=== PATIENT | male | born 1965 | race American Indian/Alaskan Native ===

== ENCOUNTER 2017-03-27 20:31 | Emergency (ER) | payer BC, OTHER ==
--- NOTE | 2017-03-27 20:43 | EDM.PDOC ---
ED HPI GENERAL MEDICAL PROBLEM - General Chief Complaint: Lower Extremity Injury/Pain Stated Complaint: POSSIBLE FRACTURED ANKLE [id number] Time Seen by Provider: 03/27/17 20:42 Source of Information: Reports: Patient History Limitations: Reports: No Limitations - History of Present Illness INITIAL COMMENTS - FREE TEXT/NARRATIVE: twisted this AM, still hurts Right Ankle Pain Score (Numeric/FACES): 4 - Related Data Allergies Allergy/AdvReac Type Severity Reaction Status Date / Time No Known Allergies Allergy Verified 03/27/17 20:47 Home Meds: Home Meds . [No Known Home Meds] 12/25/14 [History] Past Medical History - Past Surgical History GI Surgical History: Reports: Appendectomy, Cholecystectomy Social & Family History - Tobacco Use Smoking Status *Q: Never Smoker Second Hand Smoke Exposure: No - Alcohol Use Days Per Week of Alcohol Use: 0 - Recreational Drug Use Recreational Drug Use: No Review of Systems - Review of Systems Review Of Systems: ROS reveals no pertinent complaints other than HPI. Trauma Exam - Physical Exam Exam: See Below Exam Limited By: No Limitations General Appearance: Reports: Alert, WD/WN, Mild Distress, Other (pain) Head: Reports: Atraumatic Ears: Reports: Hearing Grossly Normal Throat/Mouth: Reports: Normal Voice, No Airway Compromise Neck: Reports: Non-Tender, Full Range of Motion Respiratory Exam: Reports: No Respiratory Distress Cardiovascular: Reports: Regular Rate, Rhythm GI/Abdominal: Reports: Soft, Non-Tender Extremities: Pain with Movement, Tenderness, Other (gait limited to pain, NV wnl , swollen) Neurologic: Reports: No Motor/Sensory Deficits, Alert, Normal Mood/Affect, Oriented x 3 Skin: Reports: Normal Color, Warm/Dry Course - Vital Signs Last Recorded V/S: Last Vital Signs Temp 36.3 C 03/27/17 20:40 Pulse 99 03/27/17 20:40 Resp 15 03/27/17 20:40 BP 138/75 03/27/17 20:40 Pulse Ox 97 03/27/17 20:40 - Orders/Labs/Meds Orders: Active Orders 24 hr Category Date Time Status Ankle Min 3V Rt [CR] Urgent Exams 03/27/17 20:39 Taken Meds: Medications Discontinued Medications Generic Name Dose Route Start Last Admin Trade Name Freq PRN Reason Stop Dose Admin Hydrocodone Bitart/Acetaminophen 1 tab 03/27/17 21:00 [place] 325-10 Mg PO 03/27/17 21:01 ONETIME ONE - Re-Assessments/Exams Free Text/Narrative Re-Assessment/Exam: 03/27/17 21:02 negative x-ray discussed with Pt. Departure - Departure Time of Disposition: 21:02 Disposition: Home, Self-Care 01 Condition: good Clinical Impression: Ankle sprain Qualifiers: Encounter type: initial encounter Involved ligament of ankle: other ligament Laterality: right Qualified Code(s): S93.491A - Sprain of other ligament of right ankle, initial encounter - Discharge Information Instructions: Ankle Sprain, [id number] Forms: ED Department Discharge Additional Instructions: 1) elevate leg as much as possible next 48 hours 2) ice intermittently for swelling 3) wear EMMY and use crutches next 4 days 4) follow up at clinic or recheck as needed rx given: vicodin 5/325mg bid prn x 12 - My Orders Last 24 Hours: My Active Orders 03/27/17 20:39 Ankle Min 3V Rt [CR] Urgent - Assessment/Plan Last 24 Hours: My Active Orders 03/27/17 20:39 Ankle Min 3V Rt [CR] Urgent
[2017-03-27 20:47] VITALS: BP 138/75
[2017-03-27] MEDS ORDERED: Acetaminophen/HYDROcodone 325-10 MG Tab PO ONE (21:00)
== END 2017-03-27 21:26 | disposition home or self-care (01) ==
LOC: DL.ED 20:31
DX: S93.491A Sprain of other ligament of right ankle, initial encounter (principal); Z90.49 Acquired absence of other specified parts of digestive tract; X50.1XXA Overexertion from prolonged static or awkward postures, initial encounter
CPT/HCPCS: 73610; 99283; A9270

== ENCOUNTER 2017-08-25 18:31 | Emergency (ER) | payer BC, OTHER ==
[2017-08-25 19:00] VITALS: BP 138/67
[2017-08-25] MEDS ORDERED: Ibuprofen 800 MG Tab PO ONE (20:37)
--- NOTE | 2017-08-26 03:39 | ER ---
SUBJECTIVE: The patient is a 52-year-old male who is morbidly obese. He states he used to get injections into his knee with cortisone, into both knees. He has had knee pains and aches chronically for a long time. He has not been to clinic for recheck. He has not had any trauma or falls on his knees. He has not taken anything for pain for his knees. He has not had any fevers. He has no redness or warmth or real big changes in his knees, and has become more chronic. He states they felt a little worse over the last 2 weeks. PAST MEDICAL HISTORY: Bilateral knee pain with previous steroid injections into his knees per the patient's report; morbid obesity; previous concussion; migraines; seizure; depression; lumbar sprain with a cracked vertebral body per his report; chronic back pain; appendectomy; cholecystectomy; left eye surgery; and impaired vision. CURRENT MEDICATIONS: Denied. ALLERGIES: Include penicillins, he gets a rash. SOCIAL HISTORY: No tobacco. No alcohol. No drugs. He does drink coffee and soda. REVIEW OF SYSTEMS: Chronic knee pain, seemingly somewhat worse over the last 2 weeks. No fevers or chills. No falls or trauma. No bowel or bladder changes. No bleeding. Please see HPI. OBJECTIVE: Vital Signs: He is afebrile. Heart rate 67, blood pressure is 138/67, respiratory rate 16, and oxygen is 98% on room air. His weight is 144.3 kg. General: Pleasant, talkative, no distress. He is lying down on the gurney. He gets up and can walk around. No respiratory distress. A and O x3. He appears atraumatic. EXTREMITIES: Focused examination of the lower extremities shows them to be obese. He has some dryness of his anterior knees. There is no warmth, no redness, or no signs of trauma. They possibly could have swelling versus just the obesity. There is no crepitus. No calf tenderness. No compartment syndrome. There is no laxity. IMAGING: He was sent for an x-ray. He does have arthritis, especially in the bilateral medial compartment. No signs of fracture or acute processes. EMERGENCY ROOM COURSE: He was given 800 mg of Motrin. ASSESSMENT: 1. Bilateral knee pain, exacerbation of a chronic condition. 2. Morbid obesity, in patient who has previously received cortisone injections into bilateral knees. PLAN: Recommend Tylenol and ibuprofen over the counter. Recommend to see PCP in clinic for this chronic issue as he will need to see his PCP to get a referral to Orthopedics should his PCP find this appropriate. Weight loss would be helpful. Keep active. [facility] /[id number]
== END 2017-08-25 20:44 | disposition home or self-care (01) ==
LOC: DL.ED 18:31
DX: M25.561 Pain in right knee (principal); M25.562 Pain in left knee; E66.01 Morbid (severe) obesity due to excess calories; Z68.42 Body mass index [BMI] 45.0-49.9, adult; Z88.0 Allergy status to penicillin
CPT/HCPCS: 73565; 99283; A9270

== ENCOUNTER 2018-01-25 13:49 | Emergency (ER) | payer BC, OTHER ==
[2018-01-25 14:59] LABS: CHLORIDE,CL 105 mmol/L (101-111); SODIUM,NA 139 mmol/L (135-145)
--- NOTE | 2018-01-25 15:19 | CT ---
Clinical history: 52-year-old male with left-sided weakness reported on previous CT scan for trauma 2 2014 to have "arachnoid cyst or encephalomalacia anteriorly left temporal lobe fossa but no acute intracranial hemorrhage". Reevaluate please. Scan technique: Volume acquisition of data unenhanced CT scan of the head and brain obtained while th e patient was lying supine on the Siemens multi slice scanner [facility]. All data archived in the PACS system for storage and study (bone/brain windows). Interpretation: Skull deformity uniformly thick without sign of fracture or underlying brain contusio n. Symmetric clear pneumatization of paranasal and mastoid sinuses. No extracerebral/intracranial epi dural or subdural hematoma. No foreign bodies. Reproducible large arachnoid cyst anterior temporal fossa on the left. No new signs of ischemic infar ct or encephalomalacia. Symmetric mirror-image normal ventricular system. No sign of acute intracerebral/intraventricular/subarachnoid bleed. Cerebellum and brainstem unremarkable. CONCLUSION: No acute new intracranial abnormality. Arachnoid cyst temporal fossa on the left.
--- NOTE | 2018-01-25 19:26 | EDM.PDOC ---
<Yuliya Wilson - Last Filed: 01/25/18 19:28> ED HPI GENERAL MEDICAL PROBLEM - General Chief Complaint: Neurological Problem Stated Complaint: SYMPTOMS OF STROKE Time Seen by Provider: 01/25/18 14:05 Source of Information: Reports: Patient, RN, RN Notes Reviewed History Limitations: Reports: No Limitations - History of Present Illness INITIAL COMMENTS - FREE TEXT/NARRATIVE: Ej is a 52 yo m who presents with left sided numbness that started around 10am. 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 He report that he has also had pain to his left chest. He describes the pain as pressure. Denies shortness of breath, nausea, vomiting, or cough. Denies recent illness. He reports that up until now he has been feeling pretty healthy. Onset: Today Onset Time: 10:00 Location: Reports: Chest Quality: Reports: Pressure Severity: Mild Improves with: Reports: Rest Worsens with: Reports: Movement Associated Symptoms: Reports: Chest Pain (Numbness to left side of body. ), Other Left Chest Pain Score (Numeric/FACES): 4 - Related Data Allergies Allergy/AdvReac Type Severity Reaction Status Date / Time Penicillins Allergy Rash Verified 01/25/18 17:28 Home Meds: Home Meds . [No Known Home Meds] 12/25/14 [History] Past Medical History HEENT History: Reports: Impaired Vision, Other (See Below) Other HEENT History: blind in left eye. Respiratory History: Reports: SOB Musculoskeletal History: Reports: Back Pain, Chronic, Other (See Below) Other Musculoskeletal History: cracked vertabra. sprained lumbar area. Neurological History: Reports: Concussion, Migraines, Seizure Psychiatric History: Reports: Depression Oncologic (Cancer) History: Reports: Liver - Past Surgical History HEENT Surgical History: Reports: Other (See Below) Other HEENT Surgeries/Procedures: 3 surg. to left eye. GI Surgical History: Reports: Appendectomy, Cholecystectomy Social & Family History - Tobacco Use Smoking Status *Q: Never Smoker Years of Tobacco use: 10 Packs/Tins Daily: 0.1 Used Tobacco, but Quit: Yes Month/Year Tobacco Last Used: oct Second Hand Smoke Exposure: No - Caffeine Use Caffeine Use: Reports: Coffee, Soda - Alcohol Use Days Per Week of Alcohol Use: 0 - Recreational Drug Use Recreational Drug Use: No ED ROS GENERAL - Review of Systems Review Of Systems: ROS reveals no pertinent complaints other than HPI. ED EXAM, NEURO - Physical Exam Exam: See Below Exam Limited By: No Limitations General Appearance: Alert, WD/WN, No Apparent Distress, Obese Eye Exam: Bilateral Eye: PERRL Ears: Normal External Exam, Normal Canal, Hearing Grossly Normal, Normal TMs Nose: Normal Inspection, Normal Mucosa, No Blood Throat/Mouth: Normal Inspection, Normal Lips, Normal Teeth, Normal Gums, Normal Oropharynx, Normal Voice, No Airway Compromise Head Exam: Atraumatic, Normocephalic Neck: Normal Inspection, Supple, Non-Tender, Full Range of Motion Respiratory/Chest: No Respiratory Distress, Lungs Clear, Normal Breath Sounds, No Accessory Muscle Use, Chest Non-Tender Cardiovascular: Normal Peripheral Pulses, Regular Rate, Rhythm, No Edema, No Gallop, No JVD, No Murmur, No Rub GI/Abdominal: Normal Bowel Sounds, Soft, Non-Tender, No Organomegaly, No Distention, No Abnormal Bruit, No Mass (Male) Exam: Deferred Rectal (Males) Exam: Deferred Neurological: Alert, Normal Mood/Affect, Normal Dorsiflexion, CN II-XII Intact, Normal Plantar Flexion, Normal Gait, Normal Reflexes, No Motor/Sensory Deficits , Oriented x 3, Other (Numbness to left side of the body ) Back Exam: Normal Inspection, Full Range of Motion, NT Extremities: Normal Inspection, Normal Range of Motion, Non-Tender, No Pedal Edema, Normal Capillary Refill Psychiatric: Normal Affect, Normal Mood Skin Exam: Warm, Dry, Intact, Normal Color, No Rash Course - Vital Signs Last Recorded V/S: Last Vital Signs Temp 36.0 C 01/25/18 17:06 Pulse 76 01/25/18 17:06 Resp 20 01/25/18 17:06 BP 146/68 H 01/25/18 17:06 Pulse Ox 97 01/25/18 17:06 - Orders/Labs/Meds Orders: Active Orders 24 hr Category Date Time Status EKG 12 Lead [EKG Documentation Completion] [RC] STAT Care 01/25/18 14:18 Inactive EKG Documentation Completion [RC] URGENT Care 01/25/18 14:16 Active EKG Documentation Completion [RC] URGENT Care 01/25/18 18:30 Active Labs: Laboratory Tests 01/25/18 01/25/18 01/25/18 Range/Units 14:05 14:30 14:30 WBC 11.3 H (5.0-10.0) 10^3/uL RBC 5.09 (4.6-6.2) 10^6/uL Hgb 15.4 (14.0-18.0) g/dL Hct 46.2 (40.0-54.0) % MCV 90.8 (80-100) fL MCH 30.3 (27.0-34.0) pg MCHC 33.3 (33.0-35.0) g/dL Plt Count 279 (150-450) 10^3/uL Neut % (Auto) 68.2 (42.2-75.2) % Lymph % (Auto) 23.0 (20.5-50.1) % Dougherty % (Auto) 7.1 (2-8) % Eos % (Auto) 1.4 (1.0-3.0) % Baso % (Auto) 0.3 (0.0-1.0) % Sodium 139 (135-145) mmol/L Potassium 3.6 (3.6-5.0) mmol/L Chloride 105 (101-111) mmol/L Carbon Dioxide 25.0 (21.0-31.0) mmol/L Anion Gap 12.6 BUN 13 (7-18) mg/dL Creatinine 0.8 (0.6-1.3) mg/dL Est Cr Clr Drug Dosing TNP Estimated GFR (MDRD) > 60 BUN/Creatinine Ratio 16.25 Glucose 129 H (74-105) mg/dL POC Glucose 108 H (70-105) mg/dl Calcium 8.5 (8.4-10.2) mg/dl Total Bilirubin 0.7 (0.2-1.0) mg/dL AST 31 (10-42) IU/L ALT 19 (10-60) IU/L Alkaline Phosphatase 113 (42-121) IU/L Troponin I < 0.02 (0.00-0.02) ng/ml Total Protein 7.6 (6.7-8.2) g/dl Albumin 3.7 (3.2-5.5) g/dl Globulin 3.9 Albumin/Globulin Ratio 0.95 01/25/18 Range/Units 18:30 WBC (5.0-10.0) 10^3/uL RBC (4.6-6.2) 10^6/uL Hgb (14.0-18.0) g/dL Hct (40.0-54.0) % MCV (80-100) fL MCH (27.0-34.0) pg MCHC (33.0-35.0) g/dL Plt Count (150-450) 10^3/uL Neut % (Auto) (42.2-75.2) % Lymph % (Auto) (20.5-50.1) % Dougherty % (Auto) (2-8) % Eos % (Auto) (1.0-3.0) % Baso % (Auto) (0.0-1.0) % Sodium (135-145) mmol/L Potassium (3.6-5.0) mmol/L Chloride (101-111) mmol/L Carbon Dioxide (21.0-31.0) mmol/L Anion Gap BUN (7-18) mg/dL Creatinine (0.6-1.3) mg/dL Est Cr Clr Drug Dosing Estimated GFR (MDRD) BUN/Creatinine Ratio Glucose (74-105) mg/dL POC Glucose (70-105) mg/dl Calcium (8.4-10.2) mg/dl Total Bilirubin (0.2-1.0) mg/dL AST (10-42) IU/L ALT (10-60) IU/L Alkaline Phosphatase (42-121) IU/L Troponin I < 0.02 (0.00-0.02) ng/ml Total Protein (6.7-8.2) g/dl Albumin (3.2-5.5) g/dl Globulin Albumin/Globulin Ratio Departure - Departure Time of Disposition: 19:28 Disposition: Home, Self-Care 01 Condition: Good Clinical Impression: Atypical chest pain - Discharge Information Instructions: Chest Wall Pain, [id number] Forms: ED Department Discharge Care Plan Goals: Rest Ibuprofen/tylenol as needed for pain Return to the clinic or ER if you are have worsening chest pain, shortness of breath, or other concerns. <Candelario Jiménez - Last Filed: 01/25/18 19:49> Course - Re-Assessments/Exams Free Text/Narrative Re-Assessment/Exam: 01/25/18 19:48 trop remained negative, pt feels fine. Departure - Departure Time of Disposition: 19:49 Condition: Good
[2018-01-25 20:03] VITALS: BP 112/39
--- NOTE | 2018-01-26 19:53 | EKG ---
01/25/2018 - CALF KELLY MARI D - TIME: 1412 hours. FINDINGS: EKG shows sinus rhythm, borderline left axis deviation. [facility] /[id number]
--- NOTE | 2018-01-26 19:53 | EKG ---
01/25/2018 - CALF KELLY MARI D - TIME: 1849 hours. EKG shows normal sinus rhythm. There are few PVCs. [facility] /[id number]
== END 2018-01-25 20:03 | disposition home or self-care (01) ==
LOC: DL.ED 13:49
DX: R07.89 Other chest pain (principal); Z87.891 Personal history of nicotine dependence
CPT/HCPCS: 36415; 70450; 80053; 82962; 84484; 85025; 93005; 99284

== ENCOUNTER 2019-03-30 06:29 | Day surgery (SDC) | payer OTHER, MEDICAID ==
[~2019-03-30 06:29] MED LIST: Dextrose 5%-0.45% NaCl 1,000 ML IV SCH; Midazolam 1 MG/ML 2 ML SDV ONE; Sodium Chloride 0.9% 10 ML Syringe FLUSH PRN; fentaNYL 100 MCG/2 ML SDV ONE
[2019-03-30] MEDS ORDERED: fentaNYL 100 MCG/2 ML SDV IV ONE ×3 (06:30→07:51)
[2019-03-30] MEDS ORDERED: Midazolam 1 MG/ML 2 ML SDV IV ONE ×7 (06:30→08:06)
[2019-03-30 10:28] VITALS: BP 126/58; PULSE 52
--- NOTE | 2019-03-30 15:27 | OR ---
DATE: 03/30/2019 PROCEDURE PERFORMED: Total colonoscopy. INSTRUMENT USED: [id number] Olympus video colonoscope. PREMEDICATIONS: Fentanyl 100 mcg intravenous, Versed 4 mg intravenous. Nasal O2 cannula. The procedure was done under pulse oximetry, BP recording, and property assessment monitor INDICATION: Screening colonoscopic examination is done for detection of any polypoid lesions and removal, endoscopic hemostasis therapy if needed. DESCRIPTION OF PROCEDURE: Initial rectal exam was unremarkable. Rigid anoscopy was normal. The colonoscope was passed with relative ease up to the ileocecal area. Photographs were taken of the normal-appearing cecum, identified by appendiceal orifice and double-bulged ileocecal folds. No bleeding was noted from any of the visualized areas at the commencement of the examination. Bowel preparation was found to be adequate, Loving scale 2 in all the lesions. No stricture. No vascular ectasia. No large isolated ulcerations seen. No evidence of diffuse inflammatory bowel disease in the form of friability, contact bleeding, or ulcerations. Few scattered diverticula were noted. Probing the proximal sides of folds and flexures, using adequate distention and clearing up the stool material, withdrawal of the scope was made. Cecum to rectum time over 6 minutes. No bleeding was noted from any of the visualized areas at the completion of the examination. IMPRESSION: Diverticulosis. the patient tolerated the procedure well. [facility] /[id number]
--- NOTE | 2019-03-31 09:01 | LETTER ---
03/30/2019 Prabha Aguilar MD [facility] [address] [place] [address] RE: KELLY MUELLER : [address] Aguilar: Mr. Kelly Abebe had colonoscopic examination done this morning and he tolerated the procedure well. I herewith send a copy of the endoscopy note and photographs for your review. Thank you. Sincerely, [facility] /[id number]
== END 2019-03-30 10:30 | disposition home or self-care (01) ==
LOC: DL.ENDO 06:29
PROVIDERS: ATTEND Internal Medicine Gastroenterology
DX: Z12.11 Encounter for screening for malignant neoplasm of colon (principal); K57.30 Diverticulosis of large intestine without perforation or abscess without bleeding
CPT/HCPCS: G0121; J2250; J3010; J7042

== ENCOUNTER 2019-12-27 20:34 | Emergency (ER) | payer OTHER ==
[2019-12-27 21:49] VITALS: BP 125/71; PULSE 77
[2019-12-27] MEDS ORDERED: Clindamycin HCl 150 MG Cap PO ONE (22:03)
--- NOTE | 2019-12-27 22:09 | EDM.PDOC ---
ED HPI GENERAL MEDICAL PROBLEM - General Chief Complaint: ENT Problem Stated Complaint: FACIAL PAIN, FEVER Time Seen by Provider: 12/27/19 22:01 Source of Information: Reports: Patient History Limitations: Reports: No Limitations - History of Present Illness INITIAL COMMENTS - FREE TEXT/NARRATIVE: patient comes emergency Department today with complaints of left facial pain and tooth pain. This is been going on and off for the past 4-5 months. It is getting the point where he can't take it anymore. He has no ear pain or eye pain. No difficulty swallowing. He does have quite a few bad teeth in the left upper aspect of his mouth and has not seen a dentist for over a year. Although his initial complaints less fever he denies fever to myself. No difficulty breathing or swallowing. 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 He denies any paresthesias to left side of his face. Treatments [employer]: Reports: Cold Therapy Left Upper Cheek Pain Score (Numeric/FACES): 6 - Related Data Allergies Allergy/AdvReac Type Severity Reaction Status Date / Time Penicillins Allergy Rash Verified 12/27/19 21:40 Past Medical History HEENT History: Reports: Impaired Vision, Other (See Below) Other HEENT History: blind in left eye, wears glasses. Cardiovascular History: Reports: None Respiratory History: Reports: SOB Genitourinary History: Reports: None Musculoskeletal History: Reports: Arthritis, Back Pain, Chronic, Other (See Below) Other Musculoskeletal History: cracked vertabra. sprained lumbar area. Neurological History: Reports: Concussion, Migraines, Seizure Psychiatric History: Reports: Depression Endocrine/Metabolic History: Reports: Obesity/BMI 30+ Hematologic History: Reports: None Immunologic History: Reports: None Oncologic (Cancer) History: Reports: Liver Dermatologic History: Reports: None - Past Surgical History Head Surgeries/Procedures: Reports: None HEENT Surgical History: Reports: Tonsillectomy, Other (See Below) Other HEENT Surgeries/Procedures: 3 surg. to left eye. GI Surgical History: Reports: Appendectomy, Cholecystectomy Social & Family History - Tobacco Use Smoking Status *Q: Never Smoker Second Hand Smoke Exposure: Yes - Caffeine Use Caffeine Use: Reports: Coffee, Energy Drinks, Soda - Recreational Drug Use Recreational Drug Use: No ED ROS ENT - Review of Systems Review Of Systems: Comprehensive ROS is negative, except as noted in HPI. ED EXAM, ENT - Physical Exam Exam: See Below Exam Limited By: No Limitations General Appearance: Alert, WD/WN, No Apparent Distress Eye Exam: Right Eye: Normal Inspection (The left eye lid is drooping which is chronic for him. ), Bilateral Eye: EOMI, PERRL Ears: Normal External Exam, Hearing Grossly Normal, Normal TMs, Canal Material ( Right is occluded with cerumen left is unremarkable. ) Nose: Normal Inspection, Normal Mucousa Mouth/Throat: Dental Pain (INEZ), Dental Tenderness (Left upper with palpation of the gums as well as the molars. No exudate or signs of abscess. Multiple multiple areas of caries and decay throughout the mouth without any signs of acute infection. Gingivitis is also well noted. ). No: Bleeding, Dental Abcess , Drooling, Dry Mucous Membrane, Oral Ulcers, Peritonsillar Mass, Pharyngeal Erythema, Throat Swelling, Tongue Swelling, Tonsillar Erythema, Tonsillar Exudates, Trismus, Uvular Deviation, Uvular Edema Head: Atraumatic, Normocephalic Neck: Normal Inspection, Supple, Non-Tender Respiratory/Chest: No Respiratory Distress, Lungs Clear Cardiovascular: Normal Peripheral Pulses, Regular Rate, Rhythm Extremities: Normal Inspection, Normal Range of Motion, Normal Capillary Refill Neurological: Alert, No Motor/Sensory Deficits Skin: Warm, Dry, Intact, Normal Color Course - Vital Signs Last Recorded V/S: Last Vital Signs Temp 37.7 C 12/27/19 21:40 Pulse 77 12/27/19 21:40 Resp 16 12/27/19 21:40 BP 125/71 12/27/19 21:40 Pulse Ox 99 12/27/19 21:40 - Orders/Labs/Meds Meds: Medications Discontinued Medications Generic Name Dose Route Start Last Admin Trade Name Freq PRN Reason Stop Dose Admin Clindamycin HCl 150 mg 12/27/19 22:03 12/27/19 22:07 Cleocin PO 12/27/19 22:04 150 mg ONETIME ONE Administration - Re-Assessments/Exams Free Text/Narrative Re-Assessment/Exam: 12/27/19 22:55 Really not finding anything at this time that is causing the pain. It is not [place] Palsy as this has been going on for so long and no evidence most likely from dental infection or concerns. We will start with Amoxicillin and have him follow up with Dentist ALTHEA. The patient is comfortable with this plan and his questions answered. 12/27/19 22:56 Departure - Departure Time of Disposition: 22:06 Disposition: Home, Self-Care 01 Clinical Impression: Pain, dental - Discharge Information Referrals: Prabha Aguilar MD [Primary Care Provider] - Forms: ED Department Discharge Additional Instructions: Tylenol and or Ibuprofen as needed for pain. See a dentist ALTHEA as possible. Clindamycin, 1 capsule three times a day for the next 7 days. RX given to the patient. #21. Return to the ED if new or worsening symptoms. Sepsis Event Note - Evaluation Sepsis Screening Result: No Definite Risk - Focused Exam Vital Signs: Vital Signs Temp Pulse Resp BP Pulse Ox 12/27/19 21:40 37.7 C 77 16 125/71 99 Date Exam was Performed: 12/27/19 Time Exam was Performed: 22:51 - Assessment/Plan Assessment:: Dental pain Plan: Tylenol and or Ibuprofen as needed for pain. See a dentist ALTHEA as possible. Clindamycin, 1 capsule three times a day for the next 7 days. RX given to the patient. #21. Return to the ED if new or worsening symptoms.
== END 2019-12-27 22:13 | disposition home or self-care (01) ==
LOC: DL.ED 20:34
DX: K02.9 Dental caries, unspecified (principal); K05.10 Chronic gingivitis, plaque induced; E66.9 Obesity, unspecified; Z68.42 Body mass index [BMI] 45.0-49.9, adult; Z88.0 Allergy status to penicillin
CPT/HCPCS: 99282; A9270

== ENCOUNTER 2020-11-22 18:55 | Emergency (ER) | payer OTHER ==
[2020-11-22 19:04] VITALS: BP 154/78; PULSE 105
--- NOTE | 2020-11-22 19:21 | EDM.PDOC ---
ED HPI GENERAL MEDICAL PROBLEM - General Chief Complaint: General Stated Complaint: FATIGUE, ACHE IN LEGS, FELLS WARM Time Seen by Provider: 11/22/20 19:12 Source of Information: Reports: Patient History Limitations: Reports: No Limitations - History of Present Illness INITIAL COMMENTS - FREE TEXT/NARRATIVE: past week not feeling good, today felt worse with tiredness, no appetite, body aches denies CP/SOB, still has smell and taste, called [facility] hotline told to come here. Generalized Pain Score (Numeric/FACES): 4 - Related Data Allergies Allergy/AdvReac Type Severity Reaction Status Date / Time Penicillins Allergy Rash Verified 11/22/20 19:04 Home Meds: Home Meds . [No Known Home Meds] 11/22/20 [History] Past Medical History HEENT History: Reports: Impaired Vision, Other (See Below) Other HEENT History: blind in left eye, wears glasses. Cardiovascular History: Reports: None Respiratory History: Reports: SOB Genitourinary History: Reports: None Musculoskeletal History: Reports: Arthritis, Back Pain, Chronic, Other (See Below) Other Musculoskeletal History: cracked vertabra. sprained lumbar area. Neurological History: Reports: Concussion, Migraines, Seizure Psychiatric History: Reports: Depression Endocrine/Metabolic History: Reports: Obesity/BMI 30+ Hematologic History: Reports: None Immunologic History: Reports: None Oncologic (Cancer) History: Reports: Liver Dermatologic History: Reports: None - Infectious Disease History Infectious Disease History: Reports: Chicken Pox - Past Surgical History Head Surgeries/Procedures: Reports: None HEENT Surgical History: Reports: Tonsillectomy, Other (See Below) Other HEENT Surgeries/Procedures: 3 surg. to left eye. GI Surgical History: Reports: Appendectomy, Cholecystectomy Social & Family History - Tobacco Use Tobacco Use Status *Q: Never Tobacco User Second Hand Smoke Exposure: No - Caffeine Use Caffeine Use: Reports: Coffee, Energy Drinks, Soda - Recreational Drug Use Recreational Drug Use: No ED ROS GENERAL - Review of Systems Review Of Systems: Comprehensive ROS is negative, except as noted in HPI. ED EXAM, GENERAL - Physical Exam Exam: See Below Exam Limited By: No Limitations General Appearance: Alert, WD/WN, Mild Distress, Other (discomfort) Ears: Hearing Grossly Normal Throat/Mouth: Normal Voice, No Airway Compromise Head: Atraumatic Neck: Non-Tender, Full Range of Motion Respiratory/Chest: No Respiratory Distress Cardiovascular: Regular Rate, Rhythm GI/Abdominal: Soft, Non-Tender (Male) Exam: Deferred Rectal (Males) Exam: Deferred Back Exam: Full Range of Motion Extremities: Normal Range of Motion Neurological: Alert, Oriented, Normal Cognition, Normal Gait, No Motor/Sensory Deficits Psychiatric: Normal Affect, Normal Mood Skin Exam: Warm, Dry, Normal Color Lymphatic: No Adenopathy Course - Vital Signs Last Recorded V/S: Last Vital Signs Temp 37.6 C 11/22/20 18:59 Pulse 105 H 11/22/20 18:59 Resp 18 11/22/20 18:59 BP 154/78 H 11/22/20 18:59 Pulse Ox 98 11/22/20 18:59 - Orders/Labs/Meds Labs: Laboratory Tests 11/22/20 Range/Units 19:15 Influenza Type A RNA Negative (NEGATIVE) Influenza Type B RNA Negative (NEGATIVE) SARS-CoV-2 RNA (KEILY) Positive H (NEGATIVE) - Re-Assessments/Exams Free Text/Narrative Re-Assessment/Exam: 11/22/20 20:17 results discussed with pt. Departure - Departure Time of Disposition: 20:19 Disposition: Home, Self-Care 01 Condition: Good Clinical Impression: COVID-19 - Discharge Information Instructions: COVID-19 Frequently Asked Questions Forms: ED Department Discharge Additional Instructions: 1) self quarantine 2 weeks 2) rest 3) take tylenol or motrin as needed for discomfort 4) follow up at clinic Sepsis Event Note (ED) - Evaluation Sepsis Screening Result: No Definite Risk - Focused Exam Vital Signs: Vital Signs Temp Pulse Resp BP Pulse Ox 11/22/20 18:59 37.6 C 105 H 18 154/78 H 98
[2020-11-22 20:00] LABS: CORONAVIRUS COVID-19 NAA POSITIVE (NEGATIVE)
== END 2020-11-22 20:27 | disposition home or self-care (01) ==
LOC: DL.ED 18:55
DX: U07.1 COVID-19 (principal); E66.9 Obesity, unspecified; Z68.43 Body mass index [BMI] 50.0-59.9, adult; Z88.0 Allergy status to penicillin
CPT/HCPCS: 0240U; 99283; 99282

== ENCOUNTER 2021-08-24 17:55 | Emergency (ER) | payer OTHER ==
[~2021-08-24 17:55] MED LIST changes: -Dextrose 5%-0.45% NaCl 1,000 ML IV SCH; -Midazolam 1 MG/ML 2 ML SDV ONE; -fentaNYL 100 MCG/2 ML SDV ONE
[2021-08-24] MEDS ORDERED: Acetaminophen 500 MG Tab PO ONE (18:09)
[2021-08-24] MEDS ORDERED: Sodium Chloride 0.9% 1,000 ML IV ONE ×2 (18:11→18:56)
[2021-08-24 18:45] LABS: ANION GAP 13.6 mEq/L (7-13); CHLORIDE,CL 100 mmol/L (98-107); SODIUM,NA 140 mmol/L (136-145)
[2021-08-24] MEDS ORDERED: Levofloxacin/Dextrose 5%-Water 750 MG in Premix Bag 1 BAG IV ONE (18:55)
[2021-08-24 18:58] LABS: BARBITURATES,URINE NEGATIVE (NEGATIVE); BENZODIAZEPINE,URINE NEGATIVE (NEGATIVE); MDMA (ECSTASY), URINE NEGATIVE (NEGATIVE); METHADONE,URINE NEGATIVE (NEGATIVE); METHAMPHETAMINES,URINE NEGATIVE (NEGATIVE); OPIATES,URINE NEGATIVE (NEGATIVE); TCA,URINE NEGATIVE (NEGATIVE)
[2021-08-24 18:59] LABS: AMPHETAMINES,URINE NEGATIVE (NEGATIVE); OXYCODONE,URINE NEGATIVE (NEGATIVE); PHENCYCLIDINE,URINE NEGATIVE (NEGATIVE)
--- NOTE | 2021-08-24 19:17 | CR ---
PROCEDURE INFORMATION: Exam: XR Chest Exam date and time: 08/24/2021 6:10 PM Age: 56 years old Clinical indication: Shortness of breath; Additional info: SOB TECHNIQUE: Imaging protocol: XR of the chest. Views: 1 view. COMPARISON: No relevant prior studies available. FINDINGS: Lungs: No suspicious pulmonary nodules or areas of lung consolidation. Pleural spaces: Unremarkable. No pleural effusion. No pneumothorax. Heart/Mediastinum: Unremarkable. No cardiomegaly. Bones/joints: Age appropriate. Other findings: The patient's chin obscures the thoracic inlet. IMPRESSION: No active disease of the chest.
[2021-08-24] MEDS ORDERED: Ondansetron 4 MG/2 ML SDV IVPUSH ONE (19:20)
[2021-08-24] MEDS ORDERED: Phosphorus #1 250 MG Tab PO ONE (19:27)
[2021-08-24] MEDS ORDERED: Lactated Ringers 1,000 ML IV ONE (19:41)
--- NOTE | 2021-08-24 19:46 | EDM.PDOC ---
ED HPI GENERAL MEDICAL PROBLEM - General Chief Complaint: Possible Sepsis Stated Complaint: AMBULANCE Time Seen by Provider: 08/24/21 19:42 Source of Information: Reports: Patient History Limitations: Reports: No Limitations - History of Present Illness INITIAL COMMENTS - FREE TEXT/NARRATIVE: 56 y/o M brought in by EMS c/o fever chills, sob since this morning. Pt also states he has had sores on his lower legs that are weeping fluid for the last 3 weeks. He also reports 3 months of dental pain/[place] was prescribed an antibiotic but was not able to get it filled. He reports some constant R side facial pain for the last 3 weeks. He denies hidalgo, vision prob, neck pn, cp, abd pn, recent trauma, drugs, etoh. Hx of diabetes but chooses not to take medications. Generalized Pain Score (Numeric/FACES): 4 - Related Data Allergies Allergy/AdvReac Type Severity Reaction Status Date / Time Penicillins Allergy Rash Verified 08/24/21 18:20 Home Meds: Home Meds . [No Known Home Meds] 11/22/20 [History] Past Medical History HEENT History: Reports: Impaired Vision, Other (See Below) Other HEENT History: blind in left eye, wears glasses. Cardiovascular History: Reports: None Respiratory History: Reports: SOB Genitourinary History: Reports: None Musculoskeletal History: Reports: Arthritis, Back Pain, Chronic, Other (See Below) Other Musculoskeletal History: cracked vertabra. sprained lumbar area. Neurological History: Reports: Concussion, Migraines, Seizure Psychiatric History: Reports: Depression Endocrine/Metabolic History: Reports: Obesity/BMI 30+ Hematologic History: Reports: None Immunologic History: Reports: None Oncologic (Cancer) History: Reports: Liver Dermatologic History: Reports: None - Infectious Disease History Infectious Disease History: Reports: Chicken Pox - Past Surgical History Head Surgeries/Procedures: Reports: None HEENT Surgical History: Reports: Tonsillectomy, Other (See Below) Other HEENT Surgeries/Procedures: 3 surg. to left eye. GI Surgical History: Reports: Appendectomy, Cholecystectomy Social & Family History - Family History Family Medical History: Unobtainable - Tobacco Use Tobacco Use Status *Q: Never Tobacco User - Caffeine Use Caffeine Use: Reports: Coffee, Energy Drinks, Soda, Tea - Recreational Drug Use Recreational Drug Use: No ED ROS GENERAL - Review of Systems Review Of Systems: Comprehensive ROS is negative, except as noted in HPI. ED EXAM, GENERAL - Physical Exam Exam: See Below General Appearance: Alert, Mild Distress Eye Exam: Bilateral Eye: PERRL Ears: Normal External Exam, Normal Canal, Hearing Grossly Normal, Normal TMs Nose: Normal Inspection, Normal Mucosa, No Blood Throat/Mouth: Other (multiple broken teeth very poor dentition, prominent inflammation fo the gums) Head: Atraumatic, Normocephalic Neck: Supple, Non-Tender Respiratory/Chest: Lungs Clear, Normal Breath Sounds Cardiovascular: Normal Peripheral Pulses, Tachycardia Peripheral Pulses: 2+: Brachial (L), Brachial (R), Posterior Tibial (L), Posterior Tibial (R), Dorsalis Pedis (L), Dorsalis Pedis (R) GI/Abdominal: Soft, Non-Tender (Male) Exam: Deferred Rectal (Males) Exam: Deferred Back Exam: Normal Inspection, Full Range of Motion Extremities: Other (multiple ulcerations on L and R calves with blistering formations on the R posterior calf. ) Neurological: Alert, Oriented, CN II-XII Intact, Normal Cognition, Normal Gait, Normal Reflexes, No Motor/Sensory Deficits Psychiatric: Normal Affect, Normal Mood Skin Exam: Dry, Intact, Other (hot to the touch) #1 Interpretation EKG Date: 08/24/21 Time: 18:30 Rhythm: Other (sinus tach) Errol: LAD-Left Errol Deviation P-Wave: Present QRS: Normal ST-T: Normal QT: Normal Course - Vital Signs Last Recorded V/S: Last Vital Signs Temp 99.9 F 08/24/21 21:12 Pulse 106 H 08/24/21 21:12 Resp 24 H 08/24/21 21:12 BP 106/60 08/24/21 21:12 Pulse Ox 94 L 08/24/21 21:12 - Orders/Labs/Meds Orders: Active Orders 24 hr Category Date Time Status Peripheral IV Care [RC] . DIRECTED Care 08/24/21 17:53 Active CULTURE BLOOD [BC] Stat Lab 08/24/21 18:00 Received CULTURE BLOOD [BC] Stat Lab 08/24/21 18:05 Received Sodium Chloride 0.9% [Saline Flush] Med 08/24/21 17:52 Active 10 ml FLUSH ASDIRECTED PRN Blood Culture x2 Reflex Set [OM.PC] Stat Oth 08/24/21 17:53 Ordered Peripheral IV Insertion Adult [OM.PC] Routine Oth 08/24/21 17:52 Ordered Medication Orders Sodium Chloride (Sodium Chloride 0.9% 10 Ml Syringe) 10 ml FLUSH ASDIRECTED PRN PRN Reason: Keep Vein Open Last Admin: 08/24/21 18:26 Dose: 10 ml Documented by: HUSAM Labs: Laboratory Tests 08/24/21 08/24/21 08/24/21 Range/Units 18:05 18:05 18:05 WBC 22.1 H (5.0-10.0) 10^3/uL RBC 5.30 (4.6-6.2) 10^6/uL Hgb 16.0 (14.0-18.0) g/dL Hct 49.2 (40.0-54.0) % MCV 92.8 (80-100) fL MCH 30.2 (27.0-34.0) pg MCHC 32.5 L (33.0-35.0) g/dL Plt Count 271 (150-450) 10^3/uL Neut % (Auto) 94.2 H (42.2-75.2) % Lymph % (Auto) 3.2 L (20.5-50.1) % [place] % (Auto) 2.5 (2-8) % Eos % (Auto) 0.0 L (1.0-3.0) % Baso % (Auto) 0.1 (0.0-1.0) % Sodium 140 (136-145) mmol/L Potassium 3.6 (3.5-5.1) mmol/L Chloride 100 (98-107) mmol/L Carbon Dioxide 30 (21-32) mmol/L Anion Gap 13.6 H (7-13) mEq/L BUN 11 (7-18) mg/dL Creatinine 1.08 (0.70-1.30) mg/dL Est Cr Clr Drug Dosing 74.77 mL/min Estimated GFR (MDRD) > 60 BUN/Creatinine Ratio 10.2 (No establ ref range) Glucose 129 H (70-99) mg/dL Lactic Acid 2.3 H* (0.4-2.0) mmol/L Calcium 8.1 L (8.5-10.1) mg/dL Phosphorus 0.8 L* (2.6-4.7) mg/dL Magnesium 1.7 L (1.8-2.4) mg/dL Total Bilirubin 0.8 (0.2-1.0) mg/dL AST 55 H (15-37) U/L ALT 31 (16-63) U/L Alkaline Phosphatase 185 H (46-116) U/L C-Reactive Protein 2.2 H (0.0-0.9) mg/dL B-Natriuretic Peptide 7 (0-100) pg/ml Total Protein 9.0 H (6.4-8.2) g/dL Albumin 3.7 (3.4-5.0) g/dL Globulin 5.3 Albumin/Globulin Ratio 0.7 Amylase 48 (25-115) U/L Lipase 153 (73-393) U/L TSH, Ultra Sensitive 0.57 (0.36-3.74) uIU/mL Urine Color (YELLOW) Urine Appearance (CLEAR) Urine pH (5.0-9.0) Ur Specific [place] (1.005-1.030) Urine Protein (NEGATIVE) Urine Glucose (UA) (NEGATIVE) Urine Ketones (NEGATIVE) Urine Occult Blood (NEGATIVE) Urine Nitrite (NEGATIVE) Urine Bilirubin (NEGATIVE) Urine Urobilinogen (0.2-1.0) mg/dL Ur Leukocyte Esterase (NEGATIVE) Urine Opiates Screen (NEGATIVE) Ur Oxycodone Screen (NEGATIVE) Urine Methadone Screen (NEGATIVE) Ur Barbiturates Screen (NEGATIVE) U Tricyclic Antidepress (NEGATIVE) Ur Phencyclidine Scrn (NEGATIVE) Ur Amphetamine Screen (NEGATIVE) U Methamphetamines Scrn (NEGATIVE) Urine MDMA Screen (NEGATIVE) U Benzodiazepines Scrn (NEGATIVE) Urine Cocaine Screen (NEGATIVE) U Marijuana (THC) Screen (NEGATIVE) Ethyl Alcohol < 3 (0) mg/dL SARS-CoV-2 RNA (KEILY) (NEGATIVE) 08/24/21 08/24/21 08/24/21 Range/Units 18:21 18:54 18:54 WBC (5.0-10.0) 10^3/uL RBC (4.6-6.2) 10^6/uL Hgb (14.0-18.0) g/dL Hct (40.0-54.0) % MCV (80-100) fL MCH (27.0-34.0) pg MCHC (33.0-35.0) g/dL Plt Count (150-450) 10^3/uL Neut % (Auto) (42.2-75.2) % Lymph % (Auto) (20.5-50.1) % [place] % (Auto) (2-8) % Eos % (Auto) (1.0-3.0) % Baso % (Auto) (0.0-1.0) % Sodium (136-145) mmol/L Potassium (3.5-5.1) mmol/L Chloride (98-107) mmol/L Carbon Dioxide (21-32) mmol/L Anion Gap (7-13) mEq/L BUN (7-18) mg/dL Creatinine (0.70-1.30) mg/dL Est Cr Clr Drug Dosing mL/min Estimated GFR (MDRD) BUN/Creatinine Ratio (No establ ref range) Glucose (70-99) mg/dL Lactic Acid (0.4-2.0) mmol/L Calcium (8.5-10.1) mg/dL Phosphorus (2.6-4.7) mg/dL Magnesium (1.8-2.4) mg/dL Total Bilirubin (0.2-1.0) mg/dL AST (15-37) U/L ALT (16-63) U/L Alkaline Phosphatase (46-116) U/L C-Reactive Protein (0.0-0.9) mg/dL B-Natriuretic Peptide (0-100) pg/ml Total Protein (6.4-8.2) g/dL Albumin (3.4-5.0) g/dL Globulin Albumin/Globulin Ratio Amylase (25-115) U/L Lipase (73-393) U/L TSH, Ultra Sensitive (0.36-3.74) uIU/mL Urine Color Yellow (YELLOW) Urine Appearance Clear (CLEAR) Urine pH 6.0 (5.0-9.0) Ur Specific [place] 1.015 (1.005-1.030) Urine Protein Negative (NEGATIVE) Urine Glucose (UA) Negative (NEGATIVE) Urine Ketones Negative (NEGATIVE) Urine Occult Blood Negative (NEGATIVE) Urine Nitrite Negative (NEGATIVE) Urine Bilirubin Negative (NEGATIVE) Urine Urobilinogen 2.0 H (0.2-1.0) mg/dL Ur Leukocyte Esterase Negative (NEGATIVE) Urine Opiates Screen Negative (NEGATIVE) Ur Oxycodone Screen Negative (NEGATIVE) Urine Methadone Screen Negative (NEGATIVE) Ur Barbiturates Screen Negative (NEGATIVE) U Tricyclic Antidepress Negative (NEGATIVE) Ur Phencyclidine Scrn Negative (NEGATIVE) Ur Amphetamine Screen Negative (NEGATIVE) U Methamphetamines Scrn Negative (NEGATIVE) Urine MDMA Screen Negative (NEGATIVE) U Benzodiazepines Scrn Negative (NEGATIVE) Urine Cocaine Screen Negative (NEGATIVE) U Marijuana (THC) Screen Negative (NEGATIVE) Ethyl Alcohol (0) mg/dL SARS-CoV-2 RNA (KEILY) Negative (NEGATIVE) 08/24/21 Range/Units 21:10 WBC (5.0-10.0) 10^3/uL RBC (4.6-6.2) 10^6/uL Hgb (14.0-18.0) g/dL Hct (40.0-54.0) % MCV (80-100) fL MCH (27.0-34.0) pg MCHC (33.0-35.0) g/dL Plt Count (150-450) 10^3/uL Neut % (Auto) (42.2-75.2) % Lymph % (Auto) (20.5-50.1) % [place] % (Auto) (2-8) % Eos % (Auto) (1.0-3.0) % Baso % (Auto) (0.0-1.0) % Sodium (136-145) mmol/L Potassium (3.5-5.1) mmol/L Chloride (98-107) mmol/L Carbon Dioxide (21-32) mmol/L Anion Gap (7-13) mEq/L BUN (7-18) mg/dL Creatinine (0.70-1.30) mg/dL Est Cr Clr Drug Dosing mL/min Estimated GFR (MDRD) BUN/Creatinine Ratio (No establ ref range) Glucose (70-99) mg/dL Lactic Acid 2.4 H* (0.4-2.0) mmol/L Calcium (8.5-10.1) mg/dL Phosphorus (2.6-4.7) mg/dL Magnesium (1.8-2.4) mg/dL Total Bilirubin (0.2-1.0) mg/dL AST (15-37) U/L ALT (16-63) U/L Alkaline Phosphatase (46-116) U/L C-Reactive Protein (0.0-0.9) mg/dL B-Natriuretic Peptide (0-100) pg/ml Total Protein (6.4-8.2) g/dL Albumin (3.4-5.0) g/dL Globulin Albumin/Globulin Ratio Amylase (25-115) U/L Lipase (73-393) U/L TSH, Ultra Sensitive (0.36-3.74) uIU/mL Urine Color (YELLOW) Urine Appearance (CLEAR) Urine pH (5.0-9.0) Ur Specific [place] (1.005-1.030) Urine Protein (NEGATIVE) Urine Glucose (UA) (NEGATIVE) Urine Ketones (NEGATIVE) Urine Occult Blood (NEGATIVE) Urine Nitrite (NEGATIVE) Urine Bilirubin (NEGATIVE) Urine Urobilinogen (0.2-1.0) mg/dL Ur Leukocyte Esterase (NEGATIVE) Urine Opiates Screen (NEGATIVE) Ur Oxycodone Screen (NEGATIVE) Urine Methadone Screen (NEGATIVE) Ur Barbiturates Screen (NEGATIVE) U Tricyclic Antidepress (NEGATIVE) Ur Phencyclidine Scrn (NEGATIVE) Ur Amphetamine Screen (NEGATIVE) U Methamphetamines Scrn (NEGATIVE) Urine MDMA Screen (NEGATIVE) U Benzodiazepines Scrn (NEGATIVE) Urine Cocaine Screen (NEGATIVE) U Marijuana (THC) Screen (NEGATIVE) Ethyl Alcohol (0) mg/dL SARS-CoV-2 RNA (KEILY) (NEGATIVE) Meds: Medications Generic Name Dose Route Start Last Admin Trade Name Freq PRN Reason Stop Dose Admin Sodium Chloride 10 ml 08/24/21 17:52 08/24/21 18:26 Sodium Chloride 0.9% 10 Ml Syringe FLUSH 10 ml ASDIRECTED PRN Administration Keep Vein Open Discontinued Medications Generic Name Dose Route Start Last Admin Trade Name Freq PRN Reason Stop Dose Admin Acetaminophen 1,000 mg 08/24/21 18:09 08/24/21 18:25 Acetaminophen 500 Mg Tab PO 08/24/21 18:10 1,000 mg ONETIME ONE Administration Sodium Chloride 1,000 mls @ 999 mls/hr 08/24/21 18:11 08/24/21 18:26 Normal Saline IV 08/24/21 19:11 999 mls/hr .BOLUS ONE Administration Vancomycin HCl 1,500 mg/ 500 mls @ 333.333 mls/hr 08/24/21 18:49 08/24/21 19:20 Sodium Chloride IV 08/24/21 20:18 333.333 mls/hr ONETIME ONE Administration Levofloxacin/Dextrose 750 mg/ 150 mls @ 100 mls/hr 08/24/21 18:55 08/24/21 19:09 Premix IV 08/24/21 20:24 100 mls/hr ONETIME ONE Administration Sodium Chloride 1,000 mls @ 999 mls/hr 08/24/21 18:56 08/24/21 19:10 Normal Saline IV 08/24/21 19:56 999 mls/hr .BOLUS ONE Administration Lactated Ringer's 1,000 mls @ 999 mls/hr 08/24/21 19:41 08/24/21 20:31 Ringers, Lactated IV 08/24/21 20:41 999 mls/hr .BOLUS ONE Administration Ketorolac Tromethamine 30 mg 08/24/21 20:26 08/24/21 20:33 Ketorolac 30 Mg/Ml Sdv IVPUSH 08/24/21 20:27 30 mg ONETIME ONE Administration Ondansetron HCl 4 mg 08/24/21 19:20 08/24/21 19:25 Ondansetron 4 Mg/2 Ml Sdv IVPUSH 08/24/21 19:21 4 mg ONETIME ONE Administration Sodium Phosphate 250 mg 08/24/21 19:27 08/24/21 19:54 Phosphorus #1 250 Mg Tab PO 08/24/21 19:28 250 mg ONETIME ONE Administration - Re-Assessments/Exams Free Text/Narrative Re-Assessment/Exam: 08/24/21 21:44 No beds at [facility]. I spoke with Dr. Ruelas at [facility] who accepted the pt as a transfer for inpatient treatment. 08/24/21 21:[address] Ruelas was concerned about the pts tachycardia in the 130s and asked that the pt receive 3-4 L bolus to improve his HR. They pt was given 3l bolus and his HR improved. Dr. Ruelas was contacted again and accepted the pt for transfer Departure - Departure Time of Disposition: 21:47 Disposition: DC/Tfer to Acute Hospital 02 Condition: Poor Clinical Impression: Sepsis Qualifiers: Sepsis type: sepsis due to unspecified organism Sepsis acute organ dysfunction status: with acute organ dysfunction Severe sepsis acute organ dysfunction type: unspecified Severe sepsis shock status: without septic shock Qualified Code(s): A41.9 - Sepsis, unspecified organism; R65.20 - Severe sepsis without septic shock - Discharge Information *PRESCRIPTION DRUG MONITORING PROGRAM REVIEWED*: Not Applicable *COPY OF PRESCRIPTION DRUG MONITORING REPORT IN PATIENT MYNOR: Not Applicable Forms: ED Department Discharge, Interfacility Transfer [facility] Sepsis Event Note (ED) - Evaluation Sepsis Screening Result: Possible Sepsis Risk - Focused Exam Vital Signs: Vital Signs Temp Temp Pulse Resp BP Pulse Ox 08/24/21 21:12 99.9 F 106 H 24 H 106/60 94 L 08/24/21 20:35 100.9 F H 119 H 08/24/21 19:28 102 F H 136 H 30 H 132/98 H 98 08/24/21 18:25 104 F H 08/24/21 17:51 104.5 F H 136 H 28 H 120/43 L 94 L - My Orders Last 24 Hours: My Active Orders 08/24/21 17:52 Sodium Chloride 0.9% [Saline Flush] 10 ml FLUSH ASDIRECTED PRN Peripheral IV Insertion Adult [OM.PC] Routine 08/24/21 17:53 Peripheral IV Care [RC] . DIRECTED Blood Culture x2 Reflex Set [OM.PC] Stat 08/24/21 18:00 CULTURE BLOOD [BC] Stat 08/24/21 18:05 CULTURE BLOOD [BC] Stat - Assessment/Plan Last 24 Hours: My Active Orders 08/24/21 17:52 Sodium Chloride 0.9% [Saline Flush] 10 ml FLUSH ASDIRECTED PRN Peripheral IV Insertion Adult [OM.PC] Routine 08/24/21 17:53 Peripheral IV Care [RC] . DIRECTED Blood Culture x2 Reflex Set [OM.PC] Stat 08/24/21 18:00 CULTURE BLOOD [BC] Stat 08/24/21 18:05 CULTURE BLOOD [BC] Stat
[2021-08-24] MEDS ORDERED: Ketorolac 30 MG/ML SDV IVPUSH ONE (20:26)
[2021-08-24 21:13] VITALS: BP 106/60; PULSE 106
== END 2021-08-24 23:00 ==
LOC: DL.ED 17:55
DX: A41.9 Sepsis, unspecified organism (principal); R65.20 Severe sepsis without septic shock; E66.9 Obesity, unspecified; Z68.43 Body mass index [BMI] 50.0-59.9, adult; Z88.0 Allergy status to penicillin; Z20.822 Contact with and (suspected) exposure to COVID-19
CPT/HCPCS: 36415; 71045; 80053; 80305-QW; 80307; 81003; 82150; 83605; 83690; 83735; 83880; 84100; 84443; 85025; 86140; 87040; 87077; 93005; 96365; 96367; 96375; 99285-25; A9270-GY; J1885; J1956; J2405; J3370; J7030; J7040; J7120; U0002

== ENCOUNTER 2021-09-02 00:38 | Emergency (ER) | payer OTHER ==
--- NOTE | 2021-09-02 00:59 | EDM.PDOC ---
ED HPI GENERAL MEDICAL PROBLEM - General Stated Complaint: DRESSING CHECK ON BOTH LOWER LEGS Time Seen by Provider: 09/02/21 00:50 Source of Information: Reports: Patient History Limitations: Reports: No Limitations - History of Present Illness INITIAL COMMENTS - FREE TEXT/NARRATIVE: ED with concern dressigs to tight, New today around noon states to be seen in clinic tomorrow for complete dressing change, Concerned aldo wrap to tight as wrinkling in to ankle, no change in senation or pain. Reports has been elevating as instructed. patient seen and transferred from - Related Data Allergies Allergy/AdvReac Type Severity Reaction Status Date / Time Penicillins Allergy Rash Verified 09/02/21 01:10 Home Meds: Home Meds Linezolid [Zyvox] 600 mg PO BID 09/02/21 [History] metFORMIN [Glucophage] 500 mg PO DAILY 09/02/21 [History] Past Medical History HEENT History: Reports: Impaired Vision, Other (See Below) Other HEENT History: blind in left eye, wears glasses. Cardiovascular History: Reports: None Respiratory History: Reports: SOB Genitourinary History: Reports: None Musculoskeletal History: Reports: Arthritis, Back Pain, Chronic, Other (See Below) Other Musculoskeletal History: cracked vertabra. sprained lumbar area. Neurological History: Reports: Concussion, Migraines, Seizure Psychiatric History: Reports: Depression Endocrine/Metabolic History: Reports: Obesity/BMI 30+ Hematologic History: Reports: None Immunologic History: Reports: None Oncologic (Cancer) History: Reports: Liver Dermatologic History: Reports: None - Infectious Disease History Infectious Disease History: Reports: Chicken Pox - Past Surgical History Head Surgeries/Procedures: Reports: None HEENT Surgical History: Reports: Tonsillectomy, Other (See Below) Other HEENT Surgeries/Procedures: 3 surg. to left eye. GI Surgical History: Reports: Appendectomy, Cholecystectomy Social & Family History - Family History Family Medical History: Unobtainable - Caffeine Use Caffeine Use: Reports: Coffee, Energy Drinks, Soda ED ROS GENERAL - Review of Systems Review Of Systems: Comprehensive ROS is negative, except as noted in HPI. ED EXAM, GENERAL - Physical Exam Exam: See Below Exam Limited By: No Limitations General Appearance: Alert, Anxious, Obese Eye Exam: Bilateral Eye: EOMI Ears: Normal External Exam, Hearing Grossly Normal Nose: Normal Inspection Throat/Mouth: Normal Voice, No Airway Compromise Head: Atraumatic, Normocephalic Neck: Normal Inspection, Supple, Non-Tender, Full Range of Motion Respiratory/Chest: No Respiratory Distress Cardiovascular: Normal Peripheral Pulses, Regular Rate, Rhythm. No: No Edema (3+ bilateral to knee) Extremities: Other (bilateral lower extremities dressing with aldo, kerlix aABD and xeroform gauze, left lower small amount serosanganous drainage medial mid calf. ) Neurological: Alert, Oriented, Normal Cognition Psychiatric: Normal Affect Skin Exam: Warm, Dry, Wound/Incision Course - Vital Signs Last Recorded V/S: Last Vital Signs Temp 97.8 F 09/02/21 01:00 Pulse 84 09/02/21 01:00 Resp 22 H 09/02/21 01:00 BP 106/61 09/02/21 01:00 Pulse Ox 93 L 09/02/21 01:00 - Re-Assessments/Exams Free Text/Narrative Re-Assessment/Exam: Dressing intact right, Aldo rewrapped, Left Redressed. Instructed to follow in clinic Departure - Departure Time of Disposition: 00:54 Disposition: Home, Self-Care 01 Condition: Good Clinical Impression: Dressing change or removal, nonsurgical wound, Diabetic calf ulcer - Discharge Information *PRESCRIPTION DRUG MONITORING PROGRAM REVIEWED*: No *COPY OF PRESCRIPTION DRUG MONITORING REPORT IN PATIENT MYNOR: No Instructions: How to Change Your Wound Dressing, [id number] Referrals: [facility] [Primary Care Provider] - Forms: ED Department Discharge Additional Instructions: Follow up in clinic in morning as scheduled elevate extremeties home medications as ordered by primary care Sepsis Event Note (ED) - Focused Exam Vital Signs: Vital Signs Temp Pulse Resp BP Pulse Ox 09/02/21 01:00 97.8 F 84 22 H 106/61 93 L
[2021-09-02 01:09] VITALS: BP 106/61; PULSE 84
== END 2021-09-02 01:13 | disposition home or self-care (01) ==
LOC: DL.ED 00:38
DX: E11.622 Type 2 diabetes mellitus with other skin ulcer (principal); L97.229 Non-pressure chronic ulcer of left calf with unspecified severity; E66.9 Obesity, unspecified; Z68.43 Body mass index [BMI] 50.0-59.9, adult; Z48.00 Encounter for change or removal of nonsurgical wound dressing; Z88.0 Allergy status to penicillin; Z79.899 Other long term (current) drug therapy
CPT/HCPCS: 99282

== ENCOUNTER 2021-12-21 01:06 | Emergency (ER) | payer OTHER ==
[2021-12-21 01:21] VITALS: PULSE 78
[2021-12-21 01:46] VITALS: BP 102/91
[2021-12-21 01:51] LABS: ANION GAP 10.6 mEq/L (7-13); CHLORIDE,CL 103 mmol/L (98-107); SODIUM,NA 138 mmol/L (136-145)
[2021-12-21 02:26] LABS: CORONAVIRUS COVID-19 NAA NEGATIVE (NEGATIVE)
== END 2021-12-21 02:42 | disposition home or self-care (01) ==
LOC: DL.ED 01:06
DX: S29.011A Strain of muscle and tendon of front wall of thorax, initial encounter (principal); E66.9 Obesity, unspecified; Z68.43 Body mass index [BMI] 50.0-59.9, adult; Z88.0 Allergy status to penicillin; Z20.822 Contact with and (suspected) exposure to COVID-19
CPT/HCPCS: 0240U; 36415; 71045; 80053; 80307; 83605; 84484; 85025; 85379; 85610; 93005; 93010; 99283; 99285

== ENCOUNTER 2022-01-03 17:13 | Emergency (ER) | payer OTHER ==
[2022-01-03 18:07] VITALS: BP 140/73; PULSE 83
[2022-01-03] MEDS ORDERED: Sodium Chloride 0.9% 10 ML Syringe FLUSH PRN (18:22)
[2022-01-03 19:09] LABS: ANION GAP 13.4 mEq/L (7-13); CHLORIDE,CL 102 mmol/L (98-107); SODIUM,NA 140 mmol/L (136-145)
[2022-01-03] MEDS ORDERED: Mupirocin Oint 22 GM Tube TOP ONE (19:19)
== END 2022-01-03 19:37 | disposition home or self-care (01) ==
LOC: DL.ED 17:13
DX: S81.801A Unspecified open wound, right lower leg, initial encounter (principal); S81.802A Unspecified open wound, left lower leg, initial encounter; E11.9 Type 2 diabetes mellitus without complications; E66.9 Obesity, unspecified; Z68.43 Body mass index [BMI] 50.0-59.9, adult; Z88.0 Allergy status to penicillin; X58.XXXA Exposure to other specified factors, initial encounter
CPT/HCPCS: 36415; 80053; 81003; 83605; 83880; 85025; 86140; 87040; 99284; A9270

== ENCOUNTER 2022-06-25 20:38 | Emergency (ER) | payer OTHER ==
[2022-06-25 23:35] LABS: ANION GAP 10.6 mEq/L (7-13)
[2022-06-26 00:52] LABS: AMPHETAMINES,URINE NEGATIVE (NEGATIVE); BARBITURATES,URINE NEGATIVE (NEGATIVE); BENZODIAZEPINE,URINE NEGATIVE (NEGATIVE); MDMA (ECSTASY), URINE NEGATIVE (NEGATIVE); METHADONE,URINE NEGATIVE (NEGATIVE); METHAMPHETAMINES,URINE NEGATIVE (NEGATIVE); OPIATES,URINE NEGATIVE (NEGATIVE); OXYCODONE,URINE NEGATIVE (NEGATIVE); PHENCYCLIDINE,URINE NEGATIVE (NEGATIVE); TCA,URINE NEGATIVE (NEGATIVE)
[2022-06-26] MEDS ORDERED: Iopamidol 612 MG/ML 100 ML Bottle IVPUSH ONE (01:04)
[2022-06-26 01:46] VITALS: BP 146/82; PULSE 74
== END 2022-06-26 03:22 | disposition home or self-care (01) ==
LOC: DL.ED 20:38
DX: R10.84 Generalized abdominal pain (principal); E11.9 Type 2 diabetes mellitus without complications; E66.01 Morbid (severe) obesity due to excess calories; Z68.43 Body mass index [BMI] 50.0-59.9, adult; Z88.0 Allergy status to penicillin
CPT/HCPCS: 36415; 74177; 80053; 80143; 80305; 81003; 82150; 83605; 83690; 83735; 85025; 87040; 99284; Q9967; 99283

== ENCOUNTER 2022-07-05 19:20 | Emergency (ER) | payer OTHER ==
[2022-07-05 19:53] VITALS: BP 123/65; PULSE 119
[2022-07-05 20:33] LABS: ANION GAP 13.1 mEq/L (7-13)
== END 2022-07-05 21:20 | disposition home or self-care (01) ==
LOC: DL.ED 19:20
DX: F41.9 Anxiety disorder, unspecified (principal); F43.9 Reaction to severe stress, unspecified; E11.9 Type 2 diabetes mellitus without complications; E66.01 Morbid (severe) obesity due to excess calories; Z68.30 Body mass index [BMI] 30.0-30.9, adult; Z88.0 Allergy status to penicillin; Z79.84 Long term (current) use of oral hypoglycemic drugs; Z20.822 Contact with and (suspected) exposure to COVID-19
CPT/HCPCS: 36415; 71046; 80053; 83605; 83880; 84484; 85025; 87040; 93005; 99285; U0002

== ENCOUNTER → 2022-08-24 | Emergency (ER) | payer OTHER | LOC: DL.ED 13:39 → DL.LAB 13:39 | DX: E11.9 Type 2 diabetes mellitus without complications (principal) | CPT/HCPCS: 82947 ==

== ENCOUNTER 2022-10-13 05:40 | Emergency (ER) | payer OTHER ==
[2022-10-13 06:26] VITALS: BP 147/79; PULSE 107
[2022-10-13 07:20] LABS: RESPIRATORY SYNCYTIAL VIR NAA NEGATIVE (NEGATIVE)
[2022-10-13 07:24] LABS: CORONAVIRUS COVID-19 NAA POSITIVE (NEGATIVE)
== END 2022-10-13 07:55 | disposition home or self-care (01) ==
LOC: DL.ED 05:40
DX: U07.1 COVID-19 (principal); E11.9 Type 2 diabetes mellitus without complications; E66.9 Obesity, unspecified; Z68.43 Body mass index [BMI] 50.0-59.9, adult; Z20.822 Contact with and (suspected) exposure to COVID-19; Z88.0 Allergy status to penicillin
CPT/HCPCS: 0241U; 99283

== ENCOUNTER 2022-10-16 20:33 | Emergency (ER) | payer OTHER ==
[2022-10-16 21:01] VITALS: BP 138/56; PULSE 94
== END 2022-10-16 21:40 | disposition home or self-care (01) ==
LOC: DL.ED 20:33
DX: R61 Generalized hyperhidrosis (principal); E11.9 Type 2 diabetes mellitus without complications; Z02.89 Encounter for other administrative examinations; E66.9 Obesity, unspecified; Z68.41 Body mass index [BMI] 40.0-44.9, adult; Z79.899 Other long term (current) drug therapy; Z79.82 Long term (current) use of aspirin; Z88.0 Allergy status to penicillin
CPT/HCPCS: 81001; 82947; 99283

== ENCOUNTER 2022-12-03 14:14 | Inpatient (IN) | payer OTHER ==
[2022-12-03] MEDS: Sodium Chloride 0.9% 10 ML Syringe FLUSH PRN (14:49)
[2022-12-03 15:18] LABS: PTT,PARTIAL THROMBOPLSTIN TIME 24.3 SEC (22.0-34.0)
[2022-12-03 15:23] LABS: ANION GAP 11.2 mEq/L (7-13); CHLORIDE,CL 104 mmol/L (98-107); SODIUM,NA 139 mmol/L (136-145)
[2022-12-03 15:27] LABS: ESTIMATED GFR 109 mL/min (>=60)
[2022-12-03] MEDS ORDERED: Vancomycin 2 GM in Sodium Chloride 0.9% 500 ML IV ONE (15:41)
[2022-12-03] MEDS ORDERED: Polyethylene Glycol 3350 Powder 17 GM Packet PO PRN (16:46)
[2022-12-03] MEDS ORDERED: Docusate Sodium 100 MG Cap PO PRN (16:46)
[2022-12-03] MEDS ORDERED: Acetaminophen 325 MG Tab PO PRN (16:46)
[2022-12-03] MEDS ORDERED: Albuterol/Ipratropium 3.0-0.5 MG/3 ML Neb Soln NEB PRN (16:46)
[2022-12-03] MEDS ORDERED: HYDROmorphone 0.5 MG/0.5 ML Syringe IVPUSH PRN (16:46)
[2022-12-03] MEDS ORDERED: Bisacodyl 5 MG Tab PO PRN (16:46)
[2022-12-03] MEDS ORDERED: Acetaminophen/HYDROcodone 325-10 MG Tab PO PRN (16:46)
[2022-12-03] MEDS ORDERED: Magnesium Hydroxide 400 MG/5 ML Susp 30 ML Cup PO PRN (16:46)
[2022-12-03] MEDS ORDERED: Ondansetron 4 MG/2 ML SDV IVPUSH PRN (16:46)
[2022-12-03] MEDS ORDERED: Metoprolol Tartrate 5 MG/5 ML SDV IVPUSH PRN (16:49)
[2022-12-03] MEDS ORDERED: hydrALAZINE 20 MG/ML SDV IVPUSH PRN (16:49)
[2022-12-03] MEDS ORDERED: Glucagon,Human Recombinant 1 MG Vial IM PRN (16:50)
[2022-12-03] MEDS ORDERED: 50% Dextrose in Water 50 ML Syringe IVPUSH PRN (16:50)
[2022-12-03 16:54] LABS: RESPIRATORY SYNCYTIAL VIR NAA NEGATIVE (NEGATIVE)
[2022-12-03 16:56] LABS: CORONAVIRUS COVID-19 NAA POSITIVE (NEGATIVE)
[2022-12-03] MEDS ORDERED: VANCOMYCIN IV SCH (17:00)
[2022-12-03] MEDS ORDERED: SODIUM CHLORIDE 0.9% IV SCH (17:00)
[2022-12-03] MEDS: Insulin Lispro 100 Units/ML 3 ML Vial SUBCUT SCH (17:21)
[2022-12-03] MEDS ORDERED: Rosuvastatin 10 MG Tab PO SCH (21:00)
[2022-12-04] MEDS: VANCOmycin 1.5 GM/300 ML 300 ML IV SCH ×2 (03:45→16:04)
[2022-12-04] MEDS: Lisinopril 5 MG Tab PO SCH (08:11)
[2022-12-04] MEDS: Aspirin 81 MG Tab.EC PO SCH (08:11)
[2022-12-04] MEDS: Insulin Lispro 100 Units/ML 3 ML Vial SUBCUT SCH ×3 (08:12→17:21)
[2022-12-04] MEDS: Sodium Chloride 0.9% 10 ML Syringe FLUSH PRN ×2 (08:17→16:04)
[2022-12-04] MEDS ORDERED: Aspirin 81 MG Tab.EC PO SCH (09:00)
[2022-12-04] MEDS ORDERED: Non-Formulary Medication 1 Each (Alogliptin Benzoate [Alogliptin] 25 MG Tablet) PO SCH (09:00)
[2022-12-04 12:46] LABS: ANION GAP 11.7 mEq/L (7-13)
[2022-12-04] MEDS: Bacitracin Oint 28.35 GM Tube TOP SCH ×2 (13:23→21:08)
[2022-12-04] MEDS: Polyethylene Glycol 3350 Powder 17 GM Packet PO SCH ×2 (13:48→21:09)
[2022-12-04] MEDS: cefTRIAXone 2 GM Vial IVPUSH SCH (13:49)
[2022-12-04 14:02] LABS: HEMOGLOBIN A1C 6.8 % (<5.7)
[2022-12-04] MEDS: Mineral Oil/Petrolatum Oint 100 GM OINT TOP SCH ×2 (16:41→21:08)
[2022-12-04] MEDS: Heparin Sodium 5,000 Units/ML Vial SUBCUT SCH (21:09)
[2022-12-04] MEDS: Nystatin Topical Powder 30 GM Bottle TOP SCH (21:10)
[2022-12-05] MEDS: VANCOmycin 1.5 GM/300 ML 300 ML IV SCH (03:41)
[2022-12-05] MEDS: Sodium Chloride 0.9% 10 ML Syringe FLUSH PRN (03:42)
[2022-12-05] MEDS: Heparin Sodium 5,000 Units/ML Vial SUBCUT SCH (05:13)
[2022-12-05 06:52] LABS: ANION GAP 11.7 mEq/L (7-13)
[2022-12-05 07:32] VITALS: BP 103/45
[2022-12-05 07:33] VITALS: PULSE 67
[2022-12-05] MEDS: Insulin Lispro 100 Units/ML 3 ML Vial SUBCUT SCH ×2 (08:27→12:33)
[2022-12-05] MEDS: Aspirin 81 MG Tab.EC PO SCH (08:28)
[2022-12-05] MEDS: Lisinopril 5 MG Tab PO SCH (08:28)
[2022-12-05] MEDS: cefTRIAXone 2 GM Vial IVPUSH SCH (08:30)
[2022-12-05] MEDS: Polyethylene Glycol 3350 Powder 17 GM Packet PO SCH (08:55)
[2022-12-05] MEDS: Nystatin Topical Powder 30 GM Bottle TOP SCH (09:27)
[2022-12-05] MEDS: Bacitracin Oint 28.35 GM Tube TOP SCH (09:27)
[2022-12-05] MEDS: Mineral Oil/Petrolatum Oint 100 GM OINT TOP SCH (09:28)
== END 2022-12-05 12:46 | disposition home or self-care (01) | DRG 871 ==
LOC: DL.ED 14:14 → DL.MS 16:01 → DL.ED 16:31
PROVIDERS: ADMIT Internal Medicine; ATTEND Internal Medicine
PROC: 3E03329 Introduction of Other Anti-infective into Peripheral Vein, Percutaneous Approach (ICD-10-PCS; principal; 2022-12-03)
PROC: 8E0ZXY6 Isolation (ICD-10-PCS; 2022-12-03)
DX: A41.9 Sepsis, unspecified organism (principal); U07.1 COVID-19; Z68.43 Body mass index [BMI] 50.0-59.9, adult; B37.89 Other sites of candidiasis; L03.115 Cellulitis of right lower limb; E78.5 Hyperlipidemia, unspecified; I10 Essential (primary) hypertension; E11.9 Type 2 diabetes mellitus without complications; B35.1 Tinea unguium; E87.5 Hyperkalemia; I87.2 Venous insufficiency (chronic) (peripheral); L30.4 Erythema intertrigo; E66.01 Morbid (severe) obesity due to excess calories; F32.A Depression, unspecified; Z79.82 Long term (current) use of aspirin; Z79.52 Long term (current) use of systemic steroids; Z79.4 Long term (current) use of insulin; Z79.899 Other long term (current) drug therapy; Z88.0 Allergy status to penicillin; Z97.3 Presence of spectacles and contact lenses; Z86.16 Personal history of COVID-19; Z90.89 Acquired absence of other organs; Z90.49 Acquired absence of other specified parts of digestive tract
CPT/HCPCS: 0241U; 36415; 73590-RT; 80053; 80202; 81001; 82306; 82947; 83036; 83605; 83735; 84145; 84439; 84443; 85025; 85379; 85610; 85730; 86140; 87040; 87077; 87186; 90686; 96365; 97161-GP; 97165-GO; 99222; 99239; 99284; 99284-25; A9270-GY; G0008; J0696; J1644; J1815-GY; J3370; J3490; J7040

== ENCOUNTER 2023-03-03 16:24 | Emergency (ER) | payer OTHER ==
[2023-03-03] MEDS ORDERED: Albuterol/Ipratropium 3.0-0.5 MG/3 ML Neb Soln NEB ONE (16:37)
[2023-03-03 16:39] VITALS: BP 127/61; PULSE 73
[2023-03-03 17:16] LABS: ANION GAP 10.8 mEq/L (7-13); CHLORIDE,CL 98 mmol/L (98-107); SODIUM,NA 137 mmol/L (136-145)
[2023-03-03 17:19] LABS: ESTIMATED GFR 102 mL/min (>=60)
[2023-03-03] MEDS ORDERED: Levofloxacin 500 MG Tab PO ONE (17:38)
== END 2023-03-03 17:56 | disposition home or self-care (01) ==
LOC: DL.ED 16:24
DX: J44.1 Chronic obstructive pulmonary disease with (acute) exacerbation (principal); J01.90 Acute sinusitis, unspecified; E78.00 Pure hypercholesterolemia, unspecified; I10 Essential (primary) hypertension; E11.9 Type 2 diabetes mellitus without complications; E66.9 Obesity, unspecified; Z68.43 Body mass index [BMI] 50.0-59.9, adult; Z88.0 Allergy status to penicillin; Z79.899 Other long term (current) drug therapy; Z79.82 Long term (current) use of aspirin; Z86.16 Personal history of COVID-19; Z90.49 Acquired absence of other specified parts of digestive tract; Z20.822 Contact with and (suspected) exposure to COVID-19
CPT/HCPCS: 36415; 71045; 80053; 83880; 85025; 87635; 87804; 94640; 99284; 99285; A9270; J7620-GY; U0002

== ENCOUNTER 2023-03-23 01:01 | Emergency (ER) | payer OTHER ==
[2023-03-23 03:56] VITALS: BP 134/79; PULSE 98
== END 2023-03-23 04:26 | disposition home or self-care (01) ==
LOC: DL.ED 01:01
DX: J96.02 Acute respiratory failure with hypercapnia (principal); E66.2 Morbid (severe) obesity with alveolar hypoventilation; E11.9 Type 2 diabetes mellitus without complications; E78.00 Pure hypercholesterolemia, unspecified; I10 Essential (primary) hypertension; M19.90 Unspecified osteoarthritis, unspecified site; Z68.43 Body mass index [BMI] 50.0-59.9, adult; Z86.16 Personal history of COVID-19; Z79.82 Long term (current) use of aspirin; Z79.899 Other long term (current) drug therapy; Z88.0 Allergy status to penicillin
CPT/HCPCS: 99284; 99285

== ENCOUNTER 2023-05-05 10:41 | Emergency (ER) | payer OTHER ==
[2023-05-05 10:56] VITALS: BP 149/65; PULSE 100
== END 2023-05-05 11:08 | disposition home or self-care (01) ==
LOC: DL.ED 10:41
DX: I87.2 Venous insufficiency (chronic) (peripheral) (principal); E78.00 Pure hypercholesterolemia, unspecified; I10 Essential (primary) hypertension; M19.90 Unspecified osteoarthritis, unspecified site; E11.9 Type 2 diabetes mellitus without complications; E66.9 Obesity, unspecified; Z79.82 Long term (current) use of aspirin; Z88.0 Allergy status to penicillin; Z79.899 Other long term (current) drug therapy; Z86.16 Personal history of COVID-19; Z68.43 Body mass index [BMI] 50.0-59.9, adult
CPT/HCPCS: 99282; 99283

== ENCOUNTER 2023-06-06 22:50 | Emergency (ER) | payer OTHER ==
[2023-06-06 23:15] VITALS: BP 125/68; PULSE 91
== END 2023-06-06 23:30 | disposition home or self-care (01) ==
LOC: DL.ED 22:50
DX: E11.649 Type 2 diabetes mellitus with hypoglycemia without coma (principal); E78.00 Pure hypercholesterolemia, unspecified; I10 Essential (primary) hypertension; E66.9 Obesity, unspecified; Z68.43 Body mass index [BMI] 50.0-59.9, adult; Z79.899 Other long term (current) drug therapy; Z86.16 Personal history of COVID-19; Z79.82 Long term (current) use of aspirin
CPT/HCPCS: 82947; 99283; 99284

== ENCOUNTER 2023-07-19 21:45 | Emergency (ER) | payer OTHER ==
[2023-07-19 22:04] VITALS: BP 117/60; PULSE 89
== END 2023-07-19 22:45 | disposition home or self-care (01) ==
LOC: DL.ED 21:45
DX: R04.2 Hemoptysis (principal); I10 Essential (primary) hypertension; E78.00 Pure hypercholesterolemia, unspecified; M19.90 Unspecified osteoarthritis, unspecified site; E11.9 Type 2 diabetes mellitus without complications; E66.9 Obesity, unspecified; Z86.16 Personal history of COVID-19; Z79.82 Long term (current) use of aspirin; Z79.899 Other long term (current) drug therapy; Z88.0 Allergy status to penicillin; Z68.43 Body mass index [BMI] 50.0-59.9, adult
CPT/HCPCS: 99282; 99284

== ENCOUNTER 2023-11-03 21:14 | Emergency (ER) | payer OTHER ==
[2023-11-03 21:29] VITALS: BP 136/70; PULSE 105
[2023-11-03 22:11] LABS: CORONAVIRUS COVID-19 NAA NEGATIVE (NEGATIVE); INFLUENZA A NAA POSITIVE (NEGATIVE); INFLUENZA B NAA NEGATIVE (NEGATIVE); RESPIRATORY SYNCYTIAL VIR NAA NEGATIVE (NEGATIVE)
[2023-11-03] MEDS ORDERED: Oseltamivir 75 MG Cap PO ONE (22:44)
[2023-11-03] MEDS ORDERED: Ibuprofen 600 MG Tab PO ONE (22:44)
== END 2023-11-03 22:57 | disposition home or self-care (01) ==
LOC: DL.ED 21:14
DX: J10.1 Influenza due to other identified influenza virus with other respiratory manifestations (principal); I10 Essential (primary) hypertension; E78.00 Pure hypercholesterolemia, unspecified; E11.9 Type 2 diabetes mellitus without complications; E66.9 Obesity, unspecified; Z90.49 Acquired absence of other specified parts of digestive tract; Z86.16 Personal history of COVID-19; Z79.82 Long term (current) use of aspirin; Z88.0 Allergy status to penicillin; Z79.899 Other long term (current) drug therapy; Z20.822 Contact with and (suspected) exposure to COVID-19; Z68.43 Body mass index [BMI] 50.0-59.9, adult
CPT/HCPCS: 0241U; 99283; A9270-GY

== ENCOUNTER 2023-12-03 04:01 | Emergency (ER) | payer OTHER ==
[2023-12-03] MEDS ORDERED: Sulfamethoxazole/Trimethoprim 800-160 MG Tab PO ONE (04:38)
[2023-12-03 04:50] LABS: BASOPHILS PERCENT AUTO 0.2 % (0.0-1.0); EOSINOPHILS PERCENT AUTO 1.7 % (1.0-3.0); HEMATOCRIT 49.7 % (40.0-54.0); HEMOGLOBIN 15.7 g/dL (14.0-18.0); LYMPHOCYTES PERCENT AUTO 23.5 % (20.5-50.1); MEAN CORPUSCULAR HEMOGLOBIN 29.1 pg (27.0-34.0); MEAN CORPUSCULAR HGB CONC 31.6 g/dL (33.0-35.0); MEAN CORPUSCULAR VOLUME 92.2 fL (80-100); MONOCYTES PERCENT AUTO 7.6 % (2-8); PLATELET COUNT,PLT 222 10^3/uL (150-450); RED BLOOD CELL COUNT 5.39 10^6/uL (4.6-6.2); WHITE BLOOD CELL COUNT,WBC 12.4 10^3/uL (5.0-10.0)
[2023-12-03 05:10] LABS: A/G RATIO 0.7; ALBUMIN 3.4 g/dL (3.4-5.0); ANION GAP 11.8 mEq/L (7-13); BILIRUBIN TOTAL 0.6 mg/dL (0.2-1.0); BUN/CREATININE RATIO 13.4 (No establ ref range); CALCIUM 8.1 mg/dL (8.5-10.1); CREATININE 0.82 mg/dL (0.70-1.30); EST CRCL DRUG DOSING (CG) 96.16 mL/min; POTASSIUM,K 3.8 mmol/L (3.5-5.1); PROTEIN TOTAL,TP 8.1 g/dL (6.4-8.2)
[2023-12-03 06:26] VITALS: BP 114/53; PULSE 68
== END 2023-12-03 06:18 | disposition home or self-care (01) ==
LOC: DL.ED 04:01
DX: L03.115 Cellulitis of right lower limb (principal); I10 Essential (primary) hypertension; E11.9 Type 2 diabetes mellitus without complications; E78.00 Pure hypercholesterolemia, unspecified; E66.9 Obesity, unspecified; Z86.16 Personal history of COVID-19; Z90.49 Acquired absence of other specified parts of digestive tract; Z79.899 Other long term (current) drug therapy; Z79.82 Long term (current) use of aspirin
CPT/HCPCS: 36415; 80053; 83605; 85025; 87040; 99283; A9270-GY

== ENCOUNTER 2023-12-05 12:13 | Emergency (ER) | payer OTHER ==
[2023-12-05 12:29] VITALS: BP 136/75; PULSE 94
[2023-12-05 12:56] LABS: BASOPHILS PERCENT AUTO 0.2 % (0.0-1.0); EOSINOPHILS PERCENT AUTO 0.7 % (1.0-3.0); HEMATOCRIT 51.6 % (40.0-54.0); HEMOGLOBIN 16.6 g/dL (14.0-18.0); LYMPHOCYTES PERCENT AUTO 10.2 % (20.5-50.1); MEAN CORPUSCULAR HGB CONC 32.2 g/dL (33.0-35.0); MEAN CORPUSCULAR VOLUME 90.2 fL (80-100); MONOCYTES PERCENT AUTO 6.1 % (2-8); NEUTROPHILS PERCENT AUTO 82.8 % (42.2-75.2); PLATELET COUNT,PLT 235 10^3/uL (150-450); RED BLOOD CELL COUNT 5.72 10^6/uL (4.6-6.2); WHITE BLOOD CELL COUNT,WBC 12.9 10^3/uL (5.0-10.0)
[2023-12-05] MEDS: Ondansetron 4 MG/2 ML SDV IVPUSH ONE (12:59)
[2023-12-05] MEDS: Sodium Chloride 0.9% 10 ML Syringe FLUSH PRN (12:59)
[2023-12-05 13:19] LABS: APPEARANCE,URINE CLEAR (CLEAR); BILIRUBIN,URINE NEGATIVE (NEGATIVE); COLOR,URINE YELLOW (YELLOW); GLUCOSE,URINE NEGATIVE (NEGATIVE); KETONES,URINE NEGATIVE (NEGATIVE); LEUKOCYTE ESTERASE,URINE NEGATIVE (NEGATIVE); NITRITE,URINE NEGATIVE (NEGATIVE); OCCULT BLOOD,URINE NEGATIVE (NEGATIVE); PROTEIN,URINE NEGATIVE (NEGATIVE)
[2023-12-05 13:31] LABS: CORONAVIRUS COVID-19 NAA NEGATIVE (NEGATIVE); INFLUENZA A NAA NEGATIVE (NEGATIVE); INFLUENZA B NAA NEGATIVE (NEGATIVE); RESPIRATORY SYNCYTIAL VIR NAA NEGATIVE (NEGATIVE)
== END 2023-12-05 14:18 | disposition home or self-care (01) ==
LOC: DL.ED 12:13
DX: R11.2 Nausea with vomiting, unspecified (principal); T50.905A Adverse effect of unspecified drugs, medicaments and biological substances, initial encounter; I10 Essential (primary) hypertension; E78.00 Pure hypercholesterolemia, unspecified; E11.9 Type 2 diabetes mellitus without complications; E66.9 Obesity, unspecified; Z86.16 Personal history of COVID-19; Z79.899 Other long term (current) drug therapy; Z79.82 Long term (current) use of aspirin; Z88.0 Allergy status to penicillin; Z68.43 Body mass index [BMI] 50.0-59.9, adult
CPT/HCPCS: 0241U; 36415; 81003; 82947; 85025; 96374; 99283; 99284-25; J2405; J3490

== ENCOUNTER 2024-01-22 08:00 | Emergency (ER) | payer OTHER ==
[2024-01-22] MEDS: Aspirin 81 MG Tab.Chew PO ONE (08:32)
[2024-01-22] MEDS: Sodium Chloride 0.9% 10 ML Syringe FLUSH PRN (08:32)
[2024-01-22 08:33] LABS: BASOPHILS PERCENT AUTO 0.3 % (0.0-1.0); HEMATOCRIT 48.3 % (40.0-54.0); HEMOGLOBIN 15.6 g/dL (14.0-18.0); LYMPHOCYTES PERCENT AUTO 19.7 % (20.5-50.1); MEAN CORPUSCULAR HEMOGLOBIN 29.2 pg (27.0-34.0); MEAN CORPUSCULAR HGB CONC 32.3 g/dL (33.0-35.0); MEAN CORPUSCULAR VOLUME 90.4 fL (80-100); MONOCYTES PERCENT AUTO 7.4 % (2-8); NEUTROPHILS PERCENT AUTO 71.6 % (42.2-75.2); PLATELET COUNT,PLT 246 10^3/uL (150-450); RED BLOOD CELL COUNT 5.34 10^6/uL (4.6-6.2)
[2024-01-22] MEDS: GI Cocktail Oral Solution 30 ML PO ONE (08:35)
[2024-01-22 08:54] LABS: A/G RATIO 0.8; ALANINE AMINOTRANSFERASE,ALT 16 U/L (16-63); ALBUMIN 3.6 g/dL (3.4-5.0); ALKALINE PHOSPHATASE 121 U/L (46-116); ANION GAP 11.8 mEq/L (7-13); ASPARTATE AMNIOTRANSFERASE,AST 20 U/L (15-37); BILIRUBIN TOTAL 0.6 mg/dL (0.2-1.0); BLOOD UREA NITROGEN,BUN 15 mg/dL (7-18); CALCIUM 8.3 mg/dL (8.5-10.1); CARBON DIOXIDE,CO2 30 mmol/L (21-32); CHLORIDE,CL 101 mmol/L (98-107); CREATININE 0.94 mg/dL (0.70-1.30); EST CRCL DRUG DOSING (CG) 78.24 mL/min; GLUCOSE RANDOM 152 mg/dL (70-99); POTASSIUM,K 3.8 mmol/L (3.5-5.1); PROTEIN TOTAL,TP 8.1 g/dL (6.4-8.2); SODIUM,NA 139 mmol/L (136-145)
[2024-01-22 09:03] LABS: ESTIMATED GFR 95 mL/min (>=60)
[2024-01-22 09:13] LABS: B-TYPE NATRIURETIC PEPTIDE,BNP < 5 pg/ml (0-100)
[2024-01-22 09:38] VITALS: BP 142/66; PULSE 68
== END 2024-01-22 10:00 | disposition home or self-care (01) ==
LOC: DL.ED 08:00
DX: R07.89 Other chest pain (principal); R12 Heartburn; I10 Essential (primary) hypertension; E78.00 Pure hypercholesterolemia, unspecified; E11.9 Type 2 diabetes mellitus without complications; Z86.16 Personal history of COVID-19; Z90.49 Acquired absence of other specified parts of digestive tract; Z79.82 Long term (current) use of aspirin; Z79.899 Other long term (current) drug therapy; Z88.0 Allergy status to penicillin
CPT/HCPCS: 36415; 71045; 80053; 83880; 84484; 85025; 93005; 93010; 99284; 99285; A9270-GY; J3490

== ENCOUNTER 2024-04-21 01:08 | Emergency (ER) | payer OTHER ==
[2024-04-21 03:53] LABS: BASOPHILS PERCENT AUTO 0.1 % (0.0-1.0); LYMPHOCYTES PERCENT AUTO 13.6 % (20.5-50.1); MONOCYTES PERCENT AUTO 7.5 % (2-8); NEUTROPHILS PERCENT AUTO 77.8 % (42.2-75.2); WHITE BLOOD CELL COUNT,WBC 17.6 10^3/uL (5.0-10.0)
[2024-04-21 04:18] LABS: A/G RATIO 0.73; ALANINE AMINOTRANSFERASE,ALT 34 U/L (16-63); ALBUMIN 3.2 g/dL (3.4-5.0); ALKALINE PHOSPHATASE 120 U/L (46-116); ANION GAP 11.8 mEq/L (7-13); ASPARTATE AMNIOTRANSFERASE,AST 22 U/L (15-37); BILIRUBIN TOTAL 0.7 mg/dL (0.2-1.0); BLOOD UREA NITROGEN,BUN 20 mg/dL (7-18); BUN/CREATININE RATIO 17.4 (No establ ref range); CALCIUM 7.9 mg/dL (8.5-10.1); CARBON DIOXIDE,CO2 29 mmol/L (21-32); CHLORIDE,CL 99 mmol/L (98-107); CREATININE 1.15 mg/dL (0.70-1.30); ESTIMATED GFR 74 mL/min (>=60); GLUCOSE RANDOM 263 mg/dL (70-99); MAGNESIUM 1.9 mg/dL (1.8-2.4); POTASSIUM,K 3.8 mmol/L (3.5-5.1); PROTEIN TOTAL,TP 7.6 g/dL (6.4-8.2); SODIUM,NA 136 mmol/L (136-145)
[2024-04-21 04:47] LABS: C-REACTIVE PROTEIN 0.68 ng/dL (<=0.50)
[2024-04-21 04:56] LABS: APPEARANCE,URINE CLEAR (CLEAR); BILIRUBIN,URINE NEGATIVE (NEGATIVE); COLOR,URINE YELLOW (YELLOW); GLUCOSE,URINE 100 (NEGATIVE); KETONES,URINE NEGATIVE (NEGATIVE); LEUKOCYTE ESTERASE,URINE NEGATIVE (NEGATIVE); NITRITE,URINE NEGATIVE (NEGATIVE); OCCULT BLOOD,URINE NEGATIVE (NEGATIVE); PROTEIN,URINE NEGATIVE (NEGATIVE)
[2024-04-21 05:43] VITALS: BP 99/46; PULSE 90
[2024-04-21 12:49] LABS: HEMOGLOBIN 17.5 g/dL (14.0-18.0); MEAN CORPUSCULAR HEMOGLOBIN 29.1 pg (27.0-34.0); MEAN CORPUSCULAR HGB CONC 32.7 g/dL (33.0-35.0); MEAN CORPUSCULAR VOLUME 88.9 fL (80-100); RED BLOOD CELL COUNT 6.02 10^6/uL (4.6-6.2)
[2024-04-21 13:13] LABS: HEMATOCRIT 53.5 % (40.0-54.0); PLATELET COUNT,PLT 242 10^3/uL (150-450)
== END 2024-04-21 05:49 | disposition home or self-care (01) ==
LOC: DL.ED 01:08
DX: R60.0 Localized edema (principal); R25.2 Cramp and spasm; D72.829 Elevated white blood cell count, unspecified; E66.01 Morbid (severe) obesity due to excess calories; I10 Essential (primary) hypertension; E78.00 Pure hypercholesterolemia, unspecified; E11.9 Type 2 diabetes mellitus without complications; Z86.16 Personal history of COVID-19; Z68.42 Body mass index [BMI] 45.0-49.9, adult; Z90.49 Acquired absence of other specified parts of digestive tract; Z79.82 Long term (current) use of aspirin; Z79.899 Other long term (current) drug therapy; Z88.0 Allergy status to penicillin
CPT/HCPCS: 36415; 80053; 81003; 83735; 84145; 85025; 86140; 99283; 99284

== ENCOUNTER 2024-05-19 06:10 | Emergency (ER) | payer OTHER ==
[2024-05-19] MEDS: GI Cocktail Oral Solution 30 ML PO ONE (06:41)
[2024-05-19 06:42] LABS: BASOPHILS PERCENT AUTO 0.2 % (0.0-1.0); EOSINOPHILS PERCENT AUTO 0.9 % (1.0-3.0); HEMATOCRIT 51.2 % (40.0-54.0); HEMOGLOBIN 16.5 g/dL (14.0-18.0); LYMPHOCYTES PERCENT AUTO 21.6 % (20.5-50.1); MEAN CORPUSCULAR HEMOGLOBIN 29.2 pg (27.0-34.0); MEAN CORPUSCULAR HGB CONC 32.2 g/dL (33.0-35.0); MEAN CORPUSCULAR VOLUME 90.6 fL (80-100); MONOCYTES PERCENT AUTO 7.4 % (2-8); NEUTROPHILS PERCENT AUTO 69.9 % (42.2-75.2); PLATELET COUNT,PLT 228 10^3/uL (150-450); RED BLOOD CELL COUNT 5.65 10^6/uL (4.6-6.2); WHITE BLOOD CELL COUNT,WBC 12.9 10^3/uL (5.0-10.0)
[2024-05-19 07:08] LABS: B-TYPE NATRIURETIC PEPTIDE,BNP < 5 pg/ml (0-100)
[2024-05-19 07:12] LABS: A/G RATIO 0.8; ALANINE AMINOTRANSFERASE,ALT 24 U/L (16-63); ALBUMIN 3.5 g/dL (3.4-5.0); ALKALINE PHOSPHATASE 132 U/L (46-116); ASPARTATE AMNIOTRANSFERASE,AST 23 U/L (15-37); BILIRUBIN TOTAL 0.7 mg/dL (0.2-1.0); BLOOD UREA NITROGEN,BUN 13 mg/dL (7-18); BUN/CREATININE RATIO 13.5 (No establ ref range); CALCIUM 8.6 mg/dL (8.5-10.1); CARBON DIOXIDE,CO2 31 mmol/L (21-32); CHLORIDE,CL 101 mmol/L (98-107); CREATININE 0.96 mg/dL (0.70-1.30); ESTIMATED GFR 92 mL/min (>=60); GLUCOSE RANDOM 125 mg/dL (70-99); LIPASE 54 U/L (16-77); PROTEIN TOTAL,TP 7.9 g/dL (6.4-8.2); SODIUM,NA 141 mmol/L (136-145)
[2024-05-19 07:28] LABS: APPEARANCE,URINE CLEAR (CLEAR); BILIRUBIN,URINE NEGATIVE (NEGATIVE); COLOR,URINE YELLOW (YELLOW); GLUCOSE,URINE NEGATIVE (NEGATIVE); KETONES,URINE NEGATIVE (NEGATIVE); LEUKOCYTE ESTERASE,URINE NEGATIVE (NEGATIVE); NITRITE,URINE NEGATIVE (NEGATIVE); OCCULT BLOOD,URINE NEGATIVE (NEGATIVE); PROTEIN,URINE NEGATIVE (NEGATIVE); UROBILINOGEN,URINE 0.2 mg/dL (0.2-1.0)
[2024-05-19 08:01] VITALS: PULSE 75
[2024-05-19 08:57] VITALS: BP 144/48
== END 2024-05-19 09:55 | disposition home or self-care (01) ==
LOC: DL.ED 06:10
DX: K21.9 Gastro-esophageal reflux disease without esophagitis (principal); I10 Essential (primary) hypertension; E78.00 Pure hypercholesterolemia, unspecified; E11.9 Type 2 diabetes mellitus without complications; Z86.16 Personal history of COVID-19; Z90.49 Acquired absence of other specified parts of digestive tract; Z87.891 Personal history of nicotine dependence; Z88.0 Allergy status to penicillin; Z79.82 Long term (current) use of aspirin; Z79.899 Other long term (current) drug therapy
CPT/HCPCS: 36415; 71045; 80053; 81003; 83690; 83735; 83880; 84484; 85025; 93005; 99285; A9270; 93010; 99284

== ENCOUNTER 2024-09-29 08:36 | Emergency (ER) | payer OTHER ==
[2024-09-29] MEDS: Aspirin 81 MG Tab.Chew PO ONE (08:50)
[2024-09-29 09:18] LABS: BASOPHILS PERCENT AUTO 0.3 % (0.0-1.0); EOSINOPHILS PERCENT AUTO 0.4 % (1.0-3.0); HEMATOCRIT 48.4 % (40.0-54.0); HEMOGLOBIN 15.7 g/dL (14.0-18.0); LYMPHOCYTES PERCENT AUTO 20.1 % (20.5-50.1); MEAN CORPUSCULAR HGB CONC 32.4 g/dL (33.0-35.0); MEAN CORPUSCULAR VOLUME 92.4 fL (80-100); MONOCYTES PERCENT AUTO 6.9 % (2-8); NEUTROPHILS PERCENT AUTO 72.3 % (42.2-75.2); PLATELET COUNT,PLT 270 10^3/uL (150-450); RED BLOOD CELL COUNT 5.24 10^6/uL (4.6-6.2); WHITE BLOOD CELL COUNT,WBC 11.1 10^3/uL (5.0-10.0)
[2024-09-29] MEDS: Sodium Chloride 0.9% 10 ML Syringe FLUSH PRN (09:26)
[2024-09-29 09:32] LABS: INR 1.1 (0.9-1.2); PROTHROMBIN TIME 11.5 SEC (9.0-12.0); PTT,PARTIAL THROMBOPLSTIN TIME 25.3 SEC (22.0-34.0)
[2024-09-29 09:36] LABS: A/G RATIO 0.8; ALANINE AMINOTRANSFERASE,ALT 16 U/L (16-63); ALBUMIN 3.7 g/dL (3.4-5.0); ALKALINE PHOSPHATASE 132 U/L (46-116); ANION GAP 12.8 mEq/L (7-13); ASPARTATE AMNIOTRANSFERASE,AST 19 U/L (15-37); BILIRUBIN TOTAL 0.7 mg/dL (0.2-1.0); BLOOD UREA NITROGEN,BUN 15 mg/dL (7-18); BUN/CREATININE RATIO 14.7 (No establ ref range); CALCIUM 8.1 mg/dL (8.5-10.1); CARBON DIOXIDE,CO2 30 mmol/L (21-32); CHLORIDE,CL 100 mmol/L (98-107); CREATININE 1.02 mg/dL (0.70-1.30); ESTIMATED GFR 85 mL/min (>=60); GLUCOSE RANDOM 121 mg/dL (70-99); MAGNESIUM 2.1 mg/dL (1.8-2.4); POTASSIUM,K 3.8 mmol/L (3.5-5.1); PROTEIN TOTAL,TP 8.3 g/dL (6.4-8.2); SODIUM,NA 139 mmol/L (136-145)
[2024-09-29 09:45] LABS: B-TYPE NATRIURETIC PEPTIDE,BNP < 5 pg/ml (0-100)
[2024-09-29] MEDS: GI Cocktail Oral Solution 30 ML PO ONE (09:51)
[2024-09-29 10:44] VITALS: BP 137/91; PULSE 71
== END 2024-09-29 10:35 | disposition home or self-care (01) ==
LOC: DL.ED 08:36
DX: R10.13 Epigastric pain (principal); I10 Essential (primary) hypertension; E78.00 Pure hypercholesterolemia, unspecified; M19.90 Unspecified osteoarthritis, unspecified site; E11.9 Type 2 diabetes mellitus without complications; E66.9 Obesity, unspecified; Z86.16 Personal history of COVID-19; Z90.49 Acquired absence of other specified parts of digestive tract; Z88.0 Allergy status to penicillin; Z79.82 Long term (current) use of aspirin; Z79.899 Other long term (current) drug therapy; Z68.43 Body mass index [BMI] 50.0-59.9, adult
CPT/HCPCS: 36415; 71045; 80053; 83735; 83880; 84484; 85025; 85379; 85610; 85730; 93005; 99285; A9270-GY; J3490

== ENCOUNTER 2024-10-01 06:24 | Emergency (ER) | payer OTHER ==
[2024-10-01 07:10] LABS: BASOPHILS PERCENT AUTO 0.2 % (0.0-1.0); EOSINOPHILS PERCENT AUTO 0.6 % (1.0-3.0); HEMATOCRIT 47.7 % (40.0-54.0); HEMOGLOBIN 15.2 g/dL (14.0-18.0); LYMPHOCYTES PERCENT AUTO 20.5 % (20.5-50.1); MEAN CORPUSCULAR HEMOGLOBIN 29.8 pg (27.0-34.0); MEAN CORPUSCULAR HGB CONC 31.9 g/dL (33.0-35.0); MEAN CORPUSCULAR VOLUME 93.5 fL (80-100); MONOCYTES PERCENT AUTO 6.6 % (2-8); NEUTROPHILS PERCENT AUTO 72.1 % (42.2-75.2); PLATELET COUNT,PLT 265 10^3/uL (150-450); WHITE BLOOD CELL COUNT,WBC 10.9 10^3/uL (5.0-10.0)
[2024-10-01 07:33] LABS: INR 1.1 (0.9-1.2); PROTHROMBIN TIME 10.9 SEC (9.0-12.0); PTT,PARTIAL THROMBOPLSTIN TIME 23.2 SEC (22.0-34.0)
[2024-10-01 07:34] LABS: B-TYPE NATRIURETIC PEPTIDE,BNP < 5 pg/ml (0-100)
[2024-10-01 07:35] LABS: A/G RATIO 0.8; ALANINE AMINOTRANSFERASE,ALT 20 U/L (16-63); ALBUMIN 3.5 g/dL (3.4-5.0); ALKALINE PHOSPHATASE 125 U/L (46-116); ANION GAP 13.1 mEq/L (7-13); ASPARTATE AMNIOTRANSFERASE,AST 21 U/L (15-37); BILIRUBIN TOTAL 0.6 mg/dL (0.2-1.0); BLOOD UREA NITROGEN,BUN 20 mg/dL (7-18); BUN/CREATININE RATIO 17.7 (No establ ref range); CALCIUM 8.2 mg/dL (8.5-10.1); CARBON DIOXIDE,CO2 31 mmol/L (21-32); CHLORIDE,CL 101 mmol/L (98-107); CREATININE 1.13 mg/dL (0.70-1.30); EST CRCL DRUG DOSING (CG) 68.94 mL/min; GLUCOSE RANDOM 118 mg/dL (70-99); LIPASE 68 U/L (16-77); MAGNESIUM 2.1 mg/dL (1.8-2.4); POTASSIUM,K 4.1 mmol/L (3.5-5.1); SODIUM,NA 141 mmol/L (136-145)
[2024-10-01 07:36] LABS: ESTIMATED GFR 75 mL/min (>=60)
[2024-10-01 08:15] VITALS: BP 134/44; PULSE 70
== END 2024-10-01 08:14 | disposition home or self-care (01) ==
LOC: DL.ED 06:24
DX: R07.89 Other chest pain (principal); R10.13 Epigastric pain; I10 Essential (primary) hypertension; E78.00 Pure hypercholesterolemia, unspecified; E11.9 Type 2 diabetes mellitus without complications; E66.9 Obesity, unspecified; Z86.16 Personal history of COVID-19; Z90.49 Acquired absence of other specified parts of digestive tract; Z79.899 Other long term (current) drug therapy; Z79.82 Long term (current) use of aspirin; Z88.0 Allergy status to penicillin
CPT/HCPCS: 36415; 80053; 83690; 83735; 83880; 84484; 85025; 85610; 85730; 93010; 99284; 99285

== ENCOUNTER 2025-05-30 01:23 | Emergency (ER) | payer OTHER ==
[2025-05-30] MEDS: Acetaminophen/HYDROcodone 325-5 MG Tab PO ONE (01:48)
[2025-05-30 02:13] LABS: BASOPHILS PERCENT AUTO 0.2 % (0.0-1.0); EOSINOPHILS PERCENT AUTO 1.5 % (1.0-3.0); LYMPHOCYTES PERCENT AUTO 19.7 % (20.5-50.1); MONOCYTES PERCENT AUTO 6.8 % (2-8); NEUTROPHILS PERCENT AUTO 71.8 % (42.2-75.2); PLATELET COUNT,PLT 250 10^3/uL (150-450); RED BLOOD CELL COUNT 5.16 10^6/uL (4.6-6.2); WHITE BLOOD CELL COUNT,WBC 11.7 10^3/uL (5.0-10.0)
[2025-05-30 02:36] LABS: ALANINE AMINOTRANSFERASE,ALT 15.0 U/L (16-63); ASPARTATE AMNIOTRANSFERASE,AST 14.0 U/L (15-37); BILIRUBIN TOTAL 0.5 mg/dL (0.2-1.0); BLOOD UREA NITROGEN,BUN 14.0 mg/dL (7-18); CARBON DIOXIDE,CO2 32.0 mmol/L (21-32); CHLORIDE,CL 104.0 mmol/L (98-107); CREATININE 1.35 mg/dL (0.70-1.30); EST CRCL DRUG DOSING (CG) 57.7 mL/min; GLUCOSE RANDOM 144.0 mg/dL (70-99); POTASSIUM,K 4.0 mmol/L (3.5-5.1); PROTEIN TOTAL,TP 7.6 g/dL (6.4-8.2); SODIUM,NA 140.0 mmol/L (136-145)
[2025-05-30 02:39] LABS: A/G RATIO 0.65; ESTIMATED GFR 61.0 mL/min (>=60)
[2025-05-30] MEDS: Take Home: Cephalexin 500 MG Cap, 6 Cap Pack PO ONE (03:07)
[2025-05-30 03:16] VITALS: BP 116/60; PULSE 64
== END 2025-05-30 03:15 | disposition home or self-care (01) ==
LOC: DL.ED 01:23
DX: S46.911A Strain of unspecified muscle, fascia and tendon at shoulder and upper arm level, right arm, initial encounter (principal); L03.115 Cellulitis of right lower limb; E78.00 Pure hypercholesterolemia, unspecified; I10 Essential (primary) hypertension; E11.9 Type 2 diabetes mellitus without complications; Z86.16 Personal history of COVID-19; Z88.0 Allergy status to penicillin; Z79.82 Long term (current) use of aspirin; Z79.899 Other long term (current) drug therapy; X50.0XXA Overexertion from strenuous movement or load, initial encounter; Y93.89 Activity, other specified
CPT/HCPCS: 36415; 80053; 83735; 84484; 85025; 85379; 99283; A9270

== ENCOUNTER 2025-06-08 23:25 | Emergency (ER) | payer OTHER ==
[2025-06-09 00:32] LABS: BASOPHILS PERCENT AUTO 0.2 % (0.0-1.0); EOSINOPHILS PERCENT AUTO 0.5 % (1.0-3.0); LYMPHOCYTES PERCENT AUTO 8.9 % (20.5-50.1); MONOCYTES PERCENT AUTO 6.7 % (2-8); NEUTROPHILS PERCENT AUTO 83.7 % (42.2-75.2); PLATELET COUNT,PLT 241 10^3/uL (150-450); RED BLOOD CELL COUNT 5.35 10^6/uL (4.6-6.2); WHITE BLOOD CELL COUNT,WBC 15.8 10^3/uL (5.0-10.0)
[2025-06-09 00:43] LABS: A/G RATIO 0.7; ALANINE AMINOTRANSFERASE,ALT 16.0 U/L (16-63); ASPARTATE AMNIOTRANSFERASE,AST 20.0 U/L (15-37); BILIRUBIN TOTAL 0.7 mg/dL (0.2-1.0); BLOOD UREA NITROGEN,BUN 11.0 mg/dL (7-18); CARBON DIOXIDE,CO2 29.0 mmol/L (21-32); CHLORIDE,CL 98.0 mmol/L (98-107); CREATININE 0.91 mg/dL (0.70-1.30); EST CRCL DRUG DOSING (CG) 82.73 mL/min; GLUCOSE RANDOM 106.0 mg/dL (70-99); POTASSIUM,K 4.1 mmol/L (3.5-5.1); PROTEIN TOTAL,TP 8.4 g/dL (6.4-8.2); SODIUM,NA 135.0 mmol/L (136-145)
[2025-06-09 00:44] LABS: ESTIMATED GFR 98.0 mL/min (>=60)
[2025-06-09 00:48] LABS: LACTIC ACID 1.7 mmol/L (0.4-2.0)
[2025-06-09 01:43] LABS: APPEARANCE,URINE CLEAR (CLEAR); GLUCOSE,URINE NEGATIVE (NEGATIVE); OCCULT BLOOD,URINE TRACE-INTACT (NEGATIVE)
[2025-06-09 02:10] LABS: EPITHELIAL CELLS,URINE RARE /HPF (NOT SEEN)
[2025-06-09 02:16] VITALS: BP 127/47; PULSE 83
[2025-06-09] MEDS: Take Home: Clindamycin HCl 150 MG, 12 Cap Pack PO ONE (03:31)
== END 2025-06-09 03:35 | disposition home or self-care (01) ==
LOC: DL.ED 23:25
DX: R50.9 Fever, unspecified (principal); L03.115 Cellulitis of right lower limb; E78.00 Pure hypercholesterolemia, unspecified; I10 Essential (primary) hypertension; E11.9 Type 2 diabetes mellitus without complications; Z86.16 Personal history of COVID-19; Z88.0 Allergy status to penicillin; Z79.82 Long term (current) use of aspirin; Z79.899 Other long term (current) drug therapy
CPT/HCPCS: 36415; 71045; 80053; 81001; 83605; 83690; 83735; 85025; 87040; 87428-QW; 99284; A9270-GY

== ENCOUNTER 2025-08-02 12:19 | Emergency (ER) | payer OTHER ==
[2025-08-02 13:03] VITALS: BP 147/63; PULSE 68
== END 2025-08-02 13:08 | disposition home or self-care (01) ==
LOC: DL.ED 12:19
DX: T63.441A Toxic effect of venom of bees, accidental (unintentional), initial encounter (principal); I10 Essential (primary) hypertension; E11.9 Type 2 diabetes mellitus without complications; E66.9 Obesity, unspecified; E78.00 Pure hypercholesterolemia, unspecified; Z88.0 Allergy status to penicillin; Z79.82 Long term (current) use of aspirin; Z79.899 Other long term (current) drug therapy; Z86.16 Personal history of COVID-19; Z90.49 Acquired absence of other specified parts of digestive tract
CPT/HCPCS: 99282; 99283; Q0163

== ENCOUNTER 2025-09-13 08:12 | Emergency (ER) | payer OTHER ==
[2025-09-13] MEDS ORDERED: Ketorolac 30 MG/ML SDV IVPUSH ONE (08:18)
[2025-09-13] MEDS: Ketorolac 30 MG/ML SDV IM ONE (08:51)
[2025-09-13 11:33] VITALS: BP 129/64; PULSE 66
== END 2025-09-13 11:00 | disposition home or self-care (01) ==
LOC: DL.ED 08:12
DX: M17.11 Unilateral primary osteoarthritis, right knee (principal); I10 Essential (primary) hypertension; E78.00 Pure hypercholesterolemia, unspecified; E11.9 Type 2 diabetes mellitus without complications; Z88.0 Allergy status to penicillin; Z79.899 Other long term (current) drug therapy; Z79.82 Long term (current) use of aspirin; Z86.16 Personal history of COVID-19
CPT/HCPCS: 73562; 96372; 99283; J1885